=== PATIENT | female | born 1950 | race Caucasian/White ===

== ENCOUNTER → 2016-07-24 | Day surgery (SDC) | payer OTHER ==
[~2016-07-24] VITALS: Ht 157.5 cm; Wt 98.0 kg
[~2016-07-24] MED LIST: ASPI325T45 PO; ATROPINE SULFATE 0.1 MG/ML 5ML SYR IV PRN; B-CO1CAP5 PO; COEN1CAP7 PO; DRON400T PO; ESCI10TA17 PO; EpHEDrine SULFATE INJ 50 MG/ML AMP IV PRN; MAGN400T6 PO; METO50TA16 PO; MULTTAB58 PO; OMEG1CAP84 PO; PROPOFOL IV EMULSION 10 MG/ML 20 ML VIAL IV ONE; RIVA1TAB4 PO; SIMV40TA2 PO; VITAMIN C PO; VITAMIN D PO
[2016-07-24 07:02] VITALS: BP 148/84; PULSE 88; TEMP 36.5; O2SAT 97; Ht 157.5 cm; Wt 98.0 kg
[2016-07-24 08:02] VITALS: BP 141/94; PULSE 83; O2SAT 99
[2016-07-24 08:05] VITALS: BP 141/96; PULSE 83; O2SAT 99
[2016-07-24 08:06] VITALS: BP 94/63; PULSE 83; O2SAT 99
--- NOTE | 2016-07-24 08:24 | Cardiology Procedure Brief Nt ---
Preliminary Cardiology Note Procedure Date Jul 24, 2016. 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
--- NOTE | 2016-07-24 08:39 | Anesthesiology Progress Note ---
Anesthesia Post Op Note Date & Time Jul 24, 2016 at 08:38 Vital Signs Pain Intensity: 0 Vital Signs Past 12 Hours Date Time Temp Pulse Resp B/P Pulse Ox O2 Delivery O2 Flow Rate FiO2 07/24/16 08:10 49 16 90/56 96 Room Air 07/24/16 08:06 83 16 94/63 99 Room Air 07/24/16 08:05 83 16 141/96 99 Room Air 07/24/16 08:02 83 16 141/94 99 Room Air 07/24/16 07:02 36.5 88 20 148/84 97 Room Air Notes Mental Status: alert / awake / arousable, participated in evaluation Pt Amnestic to Procedure: Yes Nausea / Vomiting: adequately controlled Pain: adequately controlled Airway Patency, RR, SpO2: stable & adequate BP & HR: stable & adequate Hydration State: stable & adequate Anesthetic Complications: no major complications apparent
--- NOTE | 2016-07-24 09:11 | Discharge Instructions ---
Discharge Instructions Admission Reason for Admission: Atrial fibrillation Discharge Discharge Diagnosis / Problem: atrial fibrillation with cardioversion Discharge Goals Goal(s): Improve disease control Activity Recommendations Activity Limitations: resume your previous activity . Instructions / Follow-Up Instructions / Follow-Up ACTIVITY RECOMMENDATIONS: * May resume driving tomorrow. SPECIAL CARE: * May apply burn ointment for skin irritation. * Please contact physician for any lightheadedness, dizziness or palpitations. We will arrange follow-up for one month Current Hospital Diet Patient's current hospital diet: AHA Diet (Heart Healthy) Discharge Diet Recommended Diet: AHA Diet (Heart Healthy) Procedures Procedures Performed: Electrical cardioversion Pending Studies Studies pending at discharge: no Medical Emergencies . Who to Call and When: Medical Emergencies: If at any time you feel your situation is an emergency, please call 911 immediately. . Non-Emergent Contact Non-Emergency issues call your: Primary Care Provider . . "Provider Documentation" section prepared by Hero Wynn. VTE Core Measure Inpt VTE Proph given/why not?: Other Anticoagulation
[2016-07-24 10:00] VITALS: BP 108/64; PULSE 52; O2SAT 96
--- NOTE | 2016-08-22 01:01 | OPERATIVE REPORT ---
DATE OF OPERATION: 07/24/2016 INDICATIONS FOR CARDIOVERSION: Atrial fibrillation. HISTORY: This is a 66-year-old woman, who has a history of atrial fibrillation, for which she is quite symptomatic. She was anticoagulated properly and remains in atrial fibrillation. She is on Multaq and Xarelto. She is, therefore, brought to the laboratory for cardioversion. After obtaining informed consent for the procedure, she was connected to the recording apparatus and anteroposterior patch electrodes were placed. She was anesthetized by the anesthesia department and once adequate anesthesia was obtained, she was converted with a single 200-joule shock to sinus rhythm. She tolerated the procedure well, awoke without sequelae and will be observed briefly and discharged. JONATHAN
== END | disposition home or self-care (01) ==
LOC: C.CATH 06:34
PROVIDERS: ATTEND Internal Medicine Cardiovascular Disease
DX: I48.0 Paroxysmal atrial fibrillation (principal); R00.2 Palpitations; F41.8 Other specified anxiety disorders; E78.00 Pure hypercholesterolemia, unspecified

== ENCOUNTER → 2016-12-20 | Outpatient (CLI) | payer OTHER ==
[~2016-12-20] MED LIST changes: -ASPI325T45 PO; -ATROPINE SULFATE 0.1 MG/ML 5ML SYR IV PRN; -EpHEDrine SULFATE INJ 50 MG/ML AMP IV PRN; -METO50TA16 PO; -PROPOFOL IV EMULSION 10 MG/ML 20 ML VIAL IV ONE
== END | disposition home or self-care (01) ==
LOC: C.PATHSPEC 17:35
PROVIDERS: ATTEND Obstetrics & Gynecology
DX: N84.1 Polyp of cervix uteri (principal); N90.89 Other specified noninflammatory disorders of vulva and perineum

== ENCOUNTER → 2017-02-07 | Outpatient (CLI) | payer OTHER ==
--- NOTE | 2017-02-07 14:07 | DIAGNOSTIC IMAGING REPORT ---
RIGHT HIP 2 VIEWS HISTORY: Right hip pain. COMPARISON: None. FINDINGS: No fracture or dislocation of the right hip. The visualized pelvic bones are intact. Soft tissues are unremarkable. Soft tissues are unremarkable. No radiopaque foreign bodies. IMPRESSION: No fracture or dislocation within the right hip. Electronically signed by: John Conway M.D. 02/07/2017 2:06 PM Dictated Date/Time: 02/07/2017 2:05 PM
--- NOTE | 2017-02-07 14:10 | DIAGNOSTIC IMAGING REPORT ---
L-SPINE MIN 4 VIEWS ROUTINE HISTORY: 66 years-old Female M54.31 Sciatica of right side without back [id number] COMPARISON: Right hip radiographs of same day TECHNIQUE: 5 views of the lumbar spine FINDINGS: 5 nonrib-bearing lumbar type vertebral segments are present. The bones are mildly demineralized. There is mild convex left curvature of the lumbar spine. 11 mm anterolisthesis of L4 on L5 is present likely secondary to underlying severe facet arthrosis. Intervertebral disc space narrowing is seen most prominently at the L4-L5 and L5-S1 levels. Severe facet arthropathy also noted at L5-S1. No acute compression deformity is identified involving the lumbar spine. Moderate degenerative changes about the bilateral hips. There is atherosclerosis of the aorta. IMPRESSION: 1. No acute fracture of the lumbar spine identified. 2. 11 mm anterolisthesis L4 on L5 is likely on a degenerative basis as there is severe facet arthrosis at this interspace. Intervertebral disc space narrowing seen most prominently at L4-L5. 3. Mild levoscoliosis. The above report was generated using voice recognition software. It may contain grammatical, syntax or spelling errors. Electronically signed by: Young Nunn M.D. 02/07/2017 2:08 PM Dictated Date/Time: 02/07/2017 2:05 PM
== END | disposition home or self-care (01) ==
LOC: C.RAD1850 13:41
PROVIDERS: ATTEND Internal Medicine
DX: M54.31 Sciatica, right side (principal); M25.551 Pain in right hip

== ENCOUNTER 2021-05-20 21:14 | Inpatient (IN) ==
[2021-05-20] MEDS ORDERED: MoRPHine SULFATE 2 MG/ML CARP IV STA (22:12)
[2021-05-20] MEDS ORDERED: SODIUM CHLORIDE 0.9% 500 ML IV STA (22:12)
[2021-05-20] MEDS ORDERED: dexAMETHasone**PF** 10 MG/ML VIAL IV ONE (22:12)
--- NOTE | 2021-05-20 22:26 | Emergency Department Note ---
Impression & Plan Acute hypoxemic respiratory failure due to COVID-19, Pneumonia due to 2019 novel coronavirus, Leukopenia, Thrombocytopenia, Hypokalemia, Hypocalcemia ED Provider Note NAME: HOUSTON YUSUF AGE: 71 SEX: F : 1950 ARRIVES VIA: Walk-In INFORMANT: Patient, ED PROVIDER(S): Jonah Sanchez MD Chief Complaint: Shortness of breath HPI: Patient does present due to concern for shortness of breath and Covid diagnosis. The patient states that this is day 11. Patient states that her pulse ox was low today running anywhere from 85 to 90%. Patient does complain of some pain in the left chest which is over the rib. Patient denies any fevers or chills. The patient has had decreased p.o. intake with mild nausea but no vomiting. The patient denies any abdominal pain or lower extremity swelling. No prior history of DVT or PE. No recent surgeries or procedures. The patient states that the patient is unvaccinated. The patient does have a history of A. fib does follow with Dr. Bales and is on Eliquis. Patient states that the rest of her family also is unvaccinated and also is suffering from symptoms of Covid. Patient is a non-smoker. ROS: See HPI for pertinent positives and negatives. A total of 10 systems were reviewed and otherwise negative. Past medical history: See below Surgical history: See below Social history: See below Physical Exam: GENERAL: NAD, wearing a mask, non-toxic. EYE EXAM: Normal conjunctiva. PERRL, no anisocoria and EOM's grossly intact w/o pain. NECK: Supple, no nuchal rigidity, no adenopathy, non-tender. No signs of meningismus. Chest: Left-sided reproducible lower chest wall pain without overlying crepitus or flail chest. LUNGS: Bibasilar crackles noted.Normal chest wall mechanics. HEART: NSR, no MRG. ABDOMEN: Abdomen soft, non-tender, normo-active bowel sounds, no masses, no rebound or guarding. BACK: No CVA TTP. SKIN: No rashes and no bruising. UPPER EXTREMITIES: Upper extremities are grossly normal. LOWER EXTREMITIES: Grossly normal, no edema. Negative Homans' sign bilaterally. NEURO EXAM: A&O x3, cranial nerves II-XII grossly intact, normal speech, moves all 4 extremities on command w/o issue. Differential diagnoses: Reactive airway disease, pneumonia, pneumothorax, COPD, CHF, infections, cardiac ischemia, pulmonary embolism, musculoskeletal, gastrointestinal, as well as other pathologies. Course: Patient was seen and evaluated the bedside. Full history physical exam was performed. EKG interpreted by me Sinus bradycardia, rate of 52, normal HI and QRS, prolonged QT, normal axis, T wave version in lead III and aVF. T wave version in lead III appears to be old from comparison EKG 06/06/2018. Imaging Studies: See Below Cardiac monitoring: An order was placed for continuous cardiac monitoring. The monitor shows a rate of 65 with sinus rhythm. MDM: Patient did present due to concern for shortness of breath left-sided chest di scomfort and cough. The patient did test positive for Covid back on May 07. Patient was 89% for me after being in the low 90s in triage. The patient was placed on 2 L nasal cannula. Blood work was obtained along with EKG troponin chest x-ray dexamethasone IV fluids. Patient has mild leukopenia with a normal H&H and mild thrombocytopenia. Chest x-ray shows likely multifocal pneumonia. EKG without obvious arrhythmia. Patient did have mild hypokalemia and hypocalcemia which were ordered for replacement. Troponin is negative. Given the patient's hypoxemia and oxygen requirement I did speak the on-call hospitalist Dr. Rodriguez and the patient was admitted to the medicine service. Critical Care: I have personally spent 37 minutes of critical care time in direct management of this patient. This includes bedside care, interpretation of diagnostic studies, and testing, discussion with consultants, patient, and family members, and other require inpatient management activities. This 37 minutes is in excess of all separately billable procedures. Past Med/Surg History Medical History (Updated 05/20/21 @ 23:30 by Jonah Sanchez MD) Anxiety Depression Diverticulosis Exposure to strep throat Hiatal hernia History of cardioversion X 2 Hypercholesteremia Internal hemorrhoids retirement current use of anticoagulant Mitral valve prolapse Morbid obesity On anticoagulant therapy Palpitations Paroxysmal atrial fibrillation Paroxysmal atrial fibrillation Pulmonary hypertension Sciatica Sciatica of right side without back pain Solitary thyroid nodule Substernal thyroid goiter Tricuspid regurgitation Surgical History H/O arthroscopic knee surgery LEFT H/O dilation and curettage History of colonoscopy History of knee replacement BILAT. History of tonsillectomy and adenoidectomy History of tooth extraction Nausea and vomiting after administration of anesthetic agent Family History Brother Family history of diabetes mellitus Stroke Father Diabetes Hypertension Coronary heart disease Stroke Mother Hypertension Ovarian cancer Unknown Coronary heart disease Ovarian cancer Social History Smoking Status: Never smoker Second Hand Exposure: Yes; Hx Alcohol Use: No Hx Substance Use: No Preferred Language: Latvian Communication Ability: Effective Visual Impairment: Partially Limited Hearing Ability: Normal Motor Operator Required: No Beliefs That Will Affect Care: None marital status: / Current Living Situation: Family Current Living Situation Comment: lives with children current occupational status: employed 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 How many Children do You have: 3 How many Children do You have Comment: 2 girls 1 boy Feels Safe at Home: Yes Childhood Exposure to Second-Hand Smoke: Yes during the past year weight has: remained stable Dental Care, Regularly: Yes Physical Activity Frequency: Does not Exercise Seatbelt Use: always Sunscreen Use: Yes Assistive Devices: Glasses Allergies Allergies Allergy/AdvReac Type Severity Reaction Status Date / Time Penicillins Allergy Mild hives Verified 05/20/21 23:03 Sulfa (Sulfonamide Allergy Mild hives Verified 05/20/21 23:03 Antibiotics) Home Meds Home Medications Medication Instructions Recorded Confirmed coQ10 (ubiquinol) 200 mg capsule 200 mg PO DAILY 06/03/18 05/20/21 magnesium 250 mg tablet 250 mg PO DAILY 06/03/18 05/20/21 vitamin B complex 1 tab PO DAILY 06/03/18 05/20/21 Previous Rx's Medication Instructions Recorded escitalopram oxalate 20 mg tablet 20 mg PO DAILY #90 tab 07/04/20 (Lexapro) metoprolol tartrate 50 mg tablet 50 mg PO BID #180 tab 08/29/20 cholecalciferol (vitamin D3) 25 5,000 unit PO DAILY #30 cap 08/30/20 mcg (1,000 unit) capsule (Vitamin D3) apixaban 5 mg tablet (Eliquis) 5 mg PO BID #180 tab 09/19/20 atorvastatin 40 mg tablet 40 mg PO DAILY #90 tab 09/19/20 flecainide 150 mg tablet 150 mg PO Q12H #60 tab 03/27/21 Results & Data (ED) Vital Signs Vital Signs - 24 hr 05/20/21 21:17 Temperature 36.5 C Temperature Source Temporal Artery Scan Pulse Rate 61 Respiratory Rate 22 Blood Pressure 176/79 H Blood Pressure Mean 111 Pulse Oximetry 91 Oxygen Delivery Method Room Air Sepsis Recent Fever Within 48 Hours Yes Sepsis New/Unexplained Change in Mental Status N/A Sepsis Action Taken by Nursing No Action Required Home Medications Current Medication List: was personally reviewed by me Laboratory Data Attestation: I reviewed the patient's lab results. Result diagrams: 05/20/21 22:44 05/20/21 22:44 Lab Results 05/20/21 05/20/21 Range/Units 22:44 22:44 WBC 4.56 L (4.8-10.8) K/uL RBC 4.64 (4.2-5.4) M/uL Hgb 14.0 (12.0-16.0) g/dL Hct 40.0 (37-47) % MCV 86.2 (80-100) fL MCH 30.2 (25-34) pg MCHC 35.0 (32-36) g/dL RDW Std Deviation 41.4 (36.4-46.3) fL RDW Coeff of Rodriguez 13.0 (11.5-14.5) % Plt Count 119 L (130-400) K/uL MPV 11.4 H (7.4-10.4) fL Immature Gran % (Auto) 0.2 % Neut % (Auto) 74.6 % Lymph % (Auto) 16.0 % [place] % (Auto) 8.8 % Eos % (Auto) 0.2 % Baso % (Auto) 0.2 % Neut # (Auto) 3.40 (1.4-6.5) K/uL Lymph # (Auto) 0.73 L (1.2-3.4) K/uL [place] # (Auto) 0.40 (0.11-0.59) K/uL Eos # (Auto) 0.01 (0-0.5) K/uL Baso # (Auto) 0.01 (0-0.2) K/uL Immature Gran # (Auto) 0.01 (0.00-0.02) K/uL Sodium 136 (136-145) mmol/L Potassium 3.1 L (3.5-5.1) mmol/L Chloride 97 L (98-107) mmol/L Carbon Dioxide 29 (21-32) mmol/L Anion Gap 9.0 (3-11) BUN 10 (7-18) mg/dl Creatinine 0.65 (0.6-1.2) mg/dl Est Cr Clr Drug Dosing Not Reportable Est GFR ( Amer) 102.8 ml/min Est GFR (Non-Af Amer) 88.7 ml/min BUN/Creatinine Ratio 14.5 (10-20) Glucose 106 H (70-99) mg/dl Calcium 8.3 L (8.5-10.1) mg/dl Total Bilirubin 1.2 H (0.2-1) mg/dl AST 52 H (15-37) U/L ALT 23 (12-78) U/L Alkaline Phosphatase 63 (45-117) U/L Troponin I < 0.015 (0-0.045) ng/ml Total Protein 7.1 (6.4-8.2) gm/dl Albumin 2.6 L (3.4-5.0) gm/dl Globulin 4.5 H (2.5-4.0) gm/dl Albumin/Globulin Ratio 0.6 L (0.9-2) Specimen Hemolysis Administered Medications Discontinued Medications Dexamethasone Sodium Phosphate (DexamethasonePf 10 Mg/Ml Vial) 6 mg IV NOW ONE Stop: 05/20/21 22:13 Last Admin: 05/20/21 22:53 Dose: 6 mg Documented by: [id number] Sodium Chloride (Nss) 500 mls @ 999 mls/hr IV .Q31M STA Stop: 05/20/21 22:42 Last Admin: 05/20/21 22:53 Dose: 999 mls/hr Documented by: [id number] Morphine Sulfate (Morphine Sulfate 2 Mg/Ml Carp) 2 mg IV NOW STA Stop: 05/20/21 22:13 Last Admin: 05/20/21 23:21 Dose: Not Given Documented by: [id number] Imaging Data Radiologist's Impression: Chest X-Ray 05/20/21 22:12 XR chest 1V portable CLINICAL HISTORY: Dyspnea/covid/hypoxia TECHNIQUE: Single frontal radiograph of the chest was obtained. Comparison: None available at the time of this dictation. FINDINGS: No lines and tubes are seen. Cardiomegaly is noted. Multifocal airspace opacities are seen. No evidence of pleural effusion or pneumothorax. IMPRESSION: Multifocal airspace opacities compatible with history of viral pneumonia. ACT 112: Negative or not required by law. Electronically signed by: Omar Mata M.D. 05/20/2021 10:51 PM Discharge Plan Visit Data Chief Complaint: Shortness of Breath/Dyspnea Stated Complaint: DAY 11 OF COVID,BLOOD OX LOW,COUGH,PAIN IN BACK ED Provider: Jonah Sanchez Discharge Problem: Acute hypoxemic respiratory failure due to COVID-19, Pneumonia due to 2019 novel coronavirus, Leukopenia, Thrombocytopenia, Hypokalemia, Hypocalcemia Forms Stand Alone Forms: [facility] [place] [facility] Prescriptions Prescriptions: No Action cholecalciferol (vitamin D3) [Vitamin D3] 25 mcg (1,000 unit) capsule 5,000 unit PO DAILY Qty: 30 RF: 0 flecainide 150 mg tablet 150 mg PO Q12H Qty: 60 RF: 5 metoprolol tartrate 50 mg tablet 50 mg PO BID Qty: 180 RF: 3 Eliquis 5 mg tablet 5 mg PO BID Qty: 180 RF: 3 escitalopram oxalate [Lexapro] 20 mg tablet 20 mg PO DAILY Qty: 90 RF: 3 atorvastatin 40 mg tablet 40 mg PO DAILY Qty: 90 RF: 3 vitamin B complex Tablet 1 tab PO DAILY RF: 0 magnesium 250 mg Tablet 250 mg PO DAILY RF: 0 coQ10 (ubiquinol) 200 mg Capsule 200 mg PO DAILY RF: 0 Referrals Referrals: Austen Muñoz MD [Primary Care Provider] -
--- NOTE | 2021-05-20 22:53 | XRay Report ---
XR chest 1V portable CLINICAL HISTORY: Dyspnea/covid/hypoxia TECHNIQUE: Single frontal radiograph of the chest was obtained. Comparison: None available at the time of this dictation. FINDINGS: No lines and tubes are seen. Cardiomegaly is noted. Multifocal airspace opacities are seen. No eviden ce of pleural effusion or pneumothorax. IMPRESSION: Multifocal airspace opacities compatible with history of viral pneumonia. ACT 112: Negative or not required by law. Electronically signed by: Omar Mata M.D. 05/20/2021 10:51 PM
[2021-05-20 23:04] LABS: Basophils # (auto) 0.01 K/uL (0-0.2); Basophils % (auto) 0.2 %; Eosinophils # (auto) 0.01 K/uL (0-0.5); Eosinophils % (auto) 0.2 %; Immature Granulocytes # (auto) 0.01 K/uL (0.00-0.02); Immature Granulocytes % (auto) 0.2 %; Lymphocytes # (auto) 0.73 K/uL (1.2-3.4); Mean Corpuscular Hemoglobin 30.2 pg (25-34); Mean Corpuscular Volume 86.2 fL (80-100); Mean Platelet Volume 11.4 fL (7.4-10.4); Monocytes % (auto) 8.8 %; Neutrophils % (auto) 74.6 %; Platelet Count 119 K/uL (130-400); RDW Standard Deviation 41.4 fL (36.4-46.3); Red Blood Count 4.64 M/uL (4.2-5.4); White Blood Count 4.56 K/uL (4.8-10.8)
[2021-05-20 23:27] LABS: Alanine Aminotransferase 23 U/L (12-78); Albumin Globulin Ratio 0.6 (0.9-2); Albumin Level 2.6 gm/dl (3.4-5.0); Alkaline Phosphatase 63 U/L (45-117); Aspartate Aminotransferase 52 U/L (15-37); BUN Creatinine Ratio 14.5 (10-20); Bilirubin,Total 1.2 mg/dl (0.2-1); Blood Urea Nitrogen 10 mg/dl (7-18); Calcium 8.3 mg/dl (8.5-10.1); Carbon Dioxide 29 mmol/L (21-32); Chloride 97 mmol/L (98-107); Est GFR (African American) 102.8 ml/min; Est GFR (Non-African American) 88.7 ml/min; Globulin 4.5 gm/dl (2.5-4.0); Glucose 106 mg/dl (70-99); Potassium 3.1 mmol/L (3.5-5.1); Sodium 136 mmol/L (136-145); Total Protein 7.1 gm/dl (6.4-8.2); Troponin I < 0.015 ng/ml (0-0.045)
[2021-05-20] MEDS ORDERED: CALCIUM GLUCONATE 1,000 MG/60 ML BAG IV STA (23:29)
[2021-05-20] MEDS ORDERED: POTASSIUM CHLORIDE CRTAB 20 MEQ TABCR PO STA (23:29)
--- NOTE | 2021-05-20 23:43 | History & Physical Report ---
Date of Service May 20, 2021 Assessment & Plan (1) Acute hypoxemic respiratory failure due to COVID-19: Plan: COVID-19 pneumonia with hypoxia- Dexamethasone 6 mg IV every morning Azithromycin 500 mg IV daily Duonebs every 4 hours while awake and every 2 hours when necessary. Guaifenesin extended release 12 mg p.o. twice daily Vitamin D 1000 international units p.o. every morning Zinc sulfate turn 20 mg p.o. every morning Patient does not qualify for remdesivir on the basis of time from initial symptoms If not responding to the above therapy, will discuss with pulmonology the value of antibody therapy (2) Thrombocytopenia: Plan: Platelets 119 upon admission, with baseline 154 Consistent with COVID-19 infection Follow serially (3) Dyslipidemia: Plan: Continue atorvastatin (4) Paroxysmal atrial fibrillation: Plan: Paroxysmal atrial fibrillation/hypertension- Continue apixaban 5 mg p.o. twice daily, flecainide 150 mg p.o. every 12 hours, metoprolol tartrate 50 mg p.o. twice daily. (5) Hypertension: Plan: See above (6) Sinus bradycardia: Plan: Secondary to treatment for atrial fibrillation (7) Anxiety with depression: Plan: Continue Escitalopram History of Present Illness Chief Complaint: The patient presents to the emergency department at the insistence of her daughter, when found to have a pulse ox in the upper 80s at home, and persistent generalized weakness since her initial positive COVID-19 test on 05/10/2021 Primary Care Provider: Austen Muñoz MD The patient is a 71-year-old female with a past medical history including hyperlipidemia, sinus bradycardia, hypertension, paroxysmal atrial fibrillation, tricuspid regurgitation, solitary thyroid nodule, right sciatica, chronic anticoagulation, diverticulosis, and diffuse goiter. Patient has symptoms that began on May 07, and had a positive COVID-19test on May 10. She was advised to remain at home and in general live healthfully. During his interval, patient had persistent generalized fatigue, loss of taste and smell, and was noted today by her daughter to have a pulse ox at home in the upper 80s. Chest x-ray: Multifocal pneumonia Abnormal laboratories: Platelets 119, potassium 3.1, total bilirubin 1.2, AST 52, calcium 8.3, albumin 2.6 COVID-19 testing was positive on 05/10/2021 From the ED the patient received: Dexamethasone 6 mg IV, NSS 500 mL, morphine sulfate 2 mg IV, and calcium gluconate 1 g IV. Allergies Allergy/AdvReac Type Severity Reaction Status Date / Time Penicillins Allergy Mild hives Verified 05/20/21 23:03 Sulfa (Sulfonamide Allergy Mild hives Verified 05/20/21 23:03 Antibiotics) Home Medications Medication Instructions Recorded Confirmed Type coQ10 (ubiquinol) 200 mg capsule 200 mg PO DAILY 06/03/18 05/20/21 History magnesium 250 mg tablet 250 mg PO DAILY 06/03/18 05/20/21 History vitamin B complex 1 tab PO DAILY 06/03/18 05/20/21 History escitalopram oxalate 20 mg tablet 20 mg PO DAILY #90 tab 07/04/20 05/20/21 Rx (Lexapro) metoprolol tartrate 50 mg tablet 50 mg PO BID #180 tab 08/29/20 05/20/21 Rx cholecalciferol (vitamin D3) 25 5,000 unit PO DAILY #30 cap 08/30/20 05/20/21 Rx mcg (1,000 unit) capsule (Vitamin D3) apixaban 5 mg tablet (Eliquis) 5 mg PO BID #180 tab 09/19/20 05/20/21 Rx atorvastatin 40 mg tablet 40 mg PO DAILY #90 tab 09/19/20 05/20/21 Rx flecainide 150 mg tablet 150 mg PO Q12H #60 tab 03/27/21 05/20/21 Rx Past Med/Surg History Medical History (Updated 05/21/21 @ 02:03 by Modesto Harrell MD) Anxiety Anxiety with depression Depression Diverticulosis Exposure to strep throat Hiatal hernia History of cardioversion X 2 Hypercholesteremia Internal hemorrhoids FDC current use of anticoagulant Mitral valve prolapse Morbid obesity On anticoagulant therapy Palpitations Paroxysmal atrial fibrillation Paroxysmal atrial fibrillation Pulmonary hypertension Sciatica Sciatica of right side without back pain Solitary thyroid nodule Substernal thyroid goiter Tricuspid regurgitation Surgical History H/O arthroscopic knee surgery LEFT H/O dilation and curettage History of colonoscopy History of knee replacement BILAT. History of tonsillectomy and adenoidectomy History of tooth extraction Nausea and vomiting after administration of anesthetic agent Family History Brother Family history of diabetes mellitus Stroke Father Diabetes Hypertension Coronary heart disease Stroke Mother Hypertension Ovarian cancer Unknown Coronary heart disease Ovarian cancer Social History Smoking Status: Never smoker Second Hand Exposure: Yes; Hx Alcohol Use: No Hx Substance Use: No Preferred Language: Belgian Communication Ability: Effective Visual Impairment: Partially Limited Hearing Ability: Normal Barrel Raiser Required: No Beliefs That Will Affect Care: None marital status: / Current Living Situation: Family Current Living Situation Comment: lives with children current occupational status: employed 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 How many Children do You have: 3 How many Children do You have Comment: 2 girls 1 boy Feels Safe at Home: Yes Childhood Exposure to Second-Hand Smoke: Yes during the past year weight has: remained stable Dental Care, Regularly: Yes Physical Activity Frequency: Does not Exercise Seatbelt Use: always Sunscreen Use: Yes Assistive Devices: Glasses Review of Systems Review of Systems: The patient denies chest pain, palpitations, cough, lower extremity swelling, sore throat, fevers, chills, sweats, nausea, vomiting, diarrhea , constipation, abdominal pain, pelvic pain, blood in urine or stool, dysuria, urinary frequency or urgency, memory loss, loss of consciousness, rash, abnormal bruising or bleeding, imbalance, focal weakness, numbness or tingling in arms or legs, generalized arthralgias or myalgias, back or neck pain, or night sweats. The review of systems is otherwise negative other than for that already noted above, and at least 10 systems have been reviewed. Physical Exam Physical Exam: The patient is awake, alert and oriented 3, well developed and well nourished, normocephalic and atraumatic, lying in bed and in no acute distress. HEENT--PERRL, EOMI, mucous membranes and oropharynx normal. Neck--supple. No JVD. No bruits. Thyroid normal, trachea midline, no adenopathy. Heart--normal S1 and S2. No murmurs, rubs or gallops. Lungs--coarse breath sounds bilaterally. No respiratory distress, no accessory muscle use. Abdomen--normal bowel sounds and soft. Nontender. Nondistended morbidly obese Extremities--no cyanosis or clubbing. No edema. Dermatologic--normal skin turgor, normal color, no abnormal lymph nodes, no rash. Neurologic--cranial nerves II through XII grossly intact. Rheumatologic--normal range of motion. Psychiatric--normal affect. Results & Data Results & Data ([facility]) Vital Signs (Past 12 Hours) Vital Signs Temp Pulse Resp BP Pulse Ox 05/20/21 21:17 97.7 F 61 22 176/79 H 91 Laboratory Results Laboratory Results WBC 4.56 K/uL (4.8-10.8) L 05/20/21 22:44 RBC 4.64 M/uL (4.2-5.4) 05/20/21 22:44 Hgb 14.0 g/dL (12.0-16.0) 05/20/21 22:44 Hct 40.0 % (37-47) 05/20/21 22:44 MCV 86.2 fL (80-100) 05/20/21 22:44 MCH 30.2 pg (25-34) 05/20/21 22:44 MCHC 35.0 g/dL (32-36) 05/20/21 22:44 RDW Std Deviation 41.4 fL (36.4-46.3) 05/20/21 22:44 RDW Coeff of Rodriguez 13.0 % (11.5-14.5) 05/20/21 22:44 Plt Count 119 K/uL (130-400) L 05/20/21 22:44 MPV 11.4 fL (7.4-10.4) H 05/20/21 22:44 Immature Gran % (Auto) 0.2 % 05/20/21 22:44 Neut % (Auto) 74.6 % 05/20/21 22:44 Lymph % (Auto) 16.0 % 05/20/21 22:44 [place] % (Auto) 8.8 % 05/20/21 22:44 Eos % (Auto) 0.2 % 05/20/21 22:44 Baso % (Auto) 0.2 % 05/20/21 22:44 Neut # (Auto) 3.40 K/uL (1.4-6.5) 05/20/21 22:44 Lymph # (Auto) 0.73 K/uL (1.2-3.4) L 05/20/21 22:44 [place] # (Auto) 0.40 K/uL (0.11-0.59) 05/20/21 22:44 Eos # (Auto) 0.01 K/uL (0-0.5) 05/20/21 22:44 Baso # (Auto) 0.01 K/uL (0-0.2) 05/20/21 22:44 Immature Gran # (Auto) 0.01 K/uL (0.00-0.02) 05/20/21 22:44 Giant Platelets 1+ 05/20/21 22:44 Sodium 136 mmol/L (136-145) 05/20/21 22:44 Potassium 3.1 mmol/L (3.5-5.1) L 05/20/21 22:44 Chloride 97 mmol/L (98-107) L 05/20/21 22:44 Carbon Dioxide 29 mmol/L (21-32) 05/20/21 22:44 Anion Gap 9.0 (3-11) 05/20/21 22:44 BUN 10 mg/dl (7-18) 05/20/21 22:44 Creatinine 0.65 mg/dl (0.6-1.2) 05/20/21 22:44 Est Cr Clr Drug Dosing Not Reportable 05/20/21 22:44 Est GFR ( Amer) 102.8 ml/min 05/20/21 22:44 Est GFR (Non-Af Amer) 88.7 ml/min 05/20/21 22:44 BUN/Creatinine Ratio 14.5 (10-20) 05/20/21 22:44 Glucose 106 mg/dl (70-99) H 05/20/21 22:44 Calcium 8.3 mg/dl (8.5-10.1) L 05/20/21 22:44 Total Bilirubin 1.2 mg/dl (0.2-1) H 05/20/21 22:44 AST 52 U/L (15-37) H 05/20/21 22:44 ALT 23 U/L (12-78) 05/20/21 22:44 Alkaline Phosphatase 63 U/L (45-117) 05/20/21 22:44 Troponin I < 0.015 ng/ml (0-0.045) 05/20/21 22:44 Total Protein 7.1 gm/dl (6.4-8.2) 05/20/21 22:44 Albumin 2.6 gm/dl (3.4-5.0) L 05/20/21 22:44 Globulin 4.5 gm/dl (2.5-4.0) H 05/20/21 22:44 Albumin/Globulin Ratio 0.6 (0.9-2) L 05/20/21 22:44 Specimen Hemolysis 05/20/21 22:44 Impressions Chest X-Ray 05/20/21 22:12 XR chest 1V portable CLINICAL HISTORY: Dyspnea/covid/hypoxia TECHNIQUE: Single frontal radiograph of the chest was obtained. Comparison: None available at the time of this dictation. FINDINGS: No lines and tubes are seen. Cardiomegaly is noted. Multifocal airspace opacities are seen. No evidence of pleural effusion or pneumothorax. IMPRESSION: Multifocal airspace opacities compatible with history of viral pneumonia. ACT 112: Negative or not required by law. Electronically signed by: Omar Mata M.D. 05/20/2021 10:51 PM Code Status & VTE Plan Code Status Full code VTE Prophylaxis Plan VTE Prophylaxis will be ordered: Yes PG Care Time/CCT Total # of Minutes Spent Total Time Spent with Patient: Total time spent is greater than 50% in coordination of care (as documented) at patient's floor/unit and/or counseling patient: Coding Level of Care Code 28456 Initial Inpt Care Lvl 3 Diagnoses Acute hypoxemic respiratory failure due to COVID-19 U07.1; J96.01 Thrombocytopenia D69.6 Dyslipidemia E78.5 Hypertension I10 Hypertension type: essential hypertension Paroxysmal atrial fibrillation I48.0 Sinus bradycardia R00.1 Anxiety with depression F41.8 (1) Hypertension Hypertension type: essential hypertension Qualified Code(s): I10 - Essential (primary) hypertension
[2021-05-20 23:50] LABS: Giant Platelets 1+
[2021-05-21] MEDS ORDERED: ACETAMINOPHEN 325 MG TAB PO PRN (00:48)
[2021-05-21] MEDS ORDERED: ONDANSETRON INJ 2 MG/ML 2 ML VIAL IV PRN (00:48)
[2021-05-21] MEDS ORDERED: NSS + 20MEQ KCL 20 MEQ/1,000 ML BAG IV SCH (01:15)
[2021-05-21] MEDS ORDERED: hydrALAZINE HCL 20 MG/ML VIAL IV ONE (02:42)
[2021-05-21] MEDS: METOPROLOL TARTRATE 50 MG TAB PO SCH ×3 (02:54→20:42)
[2021-05-21] MEDS: APIXABAN 5 MG TABLET PO SCH ×3 (03:00→20:43)
[2021-05-21 03:46] LABS: Appearance Urine Cloudy (Clear); Bacteria Urine Automated Negative (Negative); Blood Urine Negative (Negative); Color Urine Dark Yellow; Epithelial Cell Urine Auto >30 /lpf (0-5); Glucose Urine UA Negative (Negative); Ketones Urine 2+ (Negative); Leukocyte Esterase Urine Trace (Negative); Nitrite Urine Negative (Negative); Protein Urine 2+ (Negative); Urobilinogen Urine Negative (Negative)
[2021-05-21 04:10] LABS: Bilirubin Urine 1+ (Negative)
[2021-05-21 04:27] LABS: Mucus Urine Present (None Prsent); RBC Urine Automated 0-4 /hpf (0-4)
[2021-05-21] MEDS ORDERED: AZITHROMYCIN 500 MG in DEXTROSE 5% 250 ML IV SCH (06:00)
[2021-05-21] MEDS: ALBUT/IPRATROP 3MG/0.5MG NEB 3 ML VIAL NEB SCH ×2 (07:25→11:57)
[2021-05-21 08:15] LABS: Albumin Level 2.3 gm/dl (3.4-5.0); BUN Creatinine Ratio 16.7 (10-20); Calcium 8.1 mg/dl (8.5-10.1); Creatinine Clr Calc Pharmacy 114.3 ml/min; Est GFR (African American) 111.3 ml/min; Est GFR (Non-African American) 96.1 ml/min; Magnesium 2.1 mg/dl (1.8-2.4); Potassium 3.5 mmol/L (3.5-5.1)
[2021-05-21 08:18] LABS: Albumin Globulin Ratio 0.6 (0.9-2); Bilirubin,Total 1.1 mg/dl (0.2-1); Total Protein 6.3 gm/dl (6.4-8.2)
[2021-05-21] MEDS ORDERED: POTASSIUM CHLORIDE CRTAB 20 MEQ TABCR PO STA (08:18)
[2021-05-21] MEDS: dexAMETHasone 6 MG in SYRINGE 0 ML IV SCH (08:53)
[2021-05-21] MEDS: ATORVASTATIN 40 MG TAB PO SCH (08:53)
[2021-05-21] MEDS: ZINC SULFATE 220 MG CAPSULE PO SCH (08:54)
[2021-05-21] MEDS: CHOLECALCIFEROL 1,000 UNITS 25 MCG TAB PO SCH (08:54)
[2021-05-21] MEDS: FLECAINIDE ACETATE 100 MG TABLET PO SCH ×2 (08:54→20:41)
[2021-05-21] MEDS: guaiFENesin 600 MG TABCR PO SCH ×2 (08:54→20:42)
[2021-05-21] MEDS: MAGNESIUM OXIDE 400 MG TAB PO SCH (08:55)
[2021-05-21] MEDS: VITAMIN B COMPLEX TAB PO SCH (08:55)
[2021-05-21] MEDS ORDERED: NON-FORMULARY MEDICATION (Coq10 (Ubiquinol) 200 mg Capsule) PO SCH (09:00)
[2021-05-21] MEDS ORDERED: METOPROLOL TARTRATE 50 MG TAB PO SCH (09:00)
--- NOTE | 2021-05-21 10:35 | Electrocardiogram Report ---
Test Reason : Blood Pressure : / mmHG Vent. Rate : 052 BPM Atrial Rate : 052 BPM P-R Int : 156 ms QRS Dur : 104 ms QT Int : 528 ms P-R-T Axes : 062 003 012 degrees QTc Int : 491 ms Poor data quality, interpretation may be adversely affected Sinus bradycardia Otherwise normal ECG When compared with ECG of 06-JUN-2018 07:39, Premature atrial complexes are no longer Present Confirmed by Hero Wynn ([id number]) on 05/21/2021 10:34:43 AM Referred By: REFERRED SELF Confirmed By:Hero Wynn
[2021-05-21] MEDS ORDERED: ALBUT/IPRATROP 3MG/0.5MG NEB 3 ML VIAL NEB PRN (12:57)
--- NOTE | 2021-05-21 16:18 | Hospitalist Progress Note ---
Date of Service May 21, 2021 Assessment & Plan (1) Acute hypoxemic respiratory failure due to COVID-19: Plan: COVID-19 pneumonia with hypoxia-she for started having symptoms on 05/07 and tested positive on 05/10 She is not vaccinated Now requiring 5 L nasal cannula Continue dexamethasone 6 mg IV every morning Discontinue azithromycin as this may be causing her diarrhea Check procalcitonin in the morning, can start an alternative antibiotic if elevated Continue Duonebs every 4 hours while awake and every 2 hours when necessary. Continue guaifenesin extended release 12 mg p.o. twice daily Continue Vitamin D 1000 international units p.o. every morning and-zinc sulfate 20 mg p.o. every morning Patient does not qualify for remdesivir on the basis of time from initial symptoms -Add incentive spirometer and flutter valve (2) Diarrhea: Plan: 13 episodes of loose stool on 05/21-could be from Covid, but may be from azithromycin C. difficile negative Start Imodium as needed Hold azithromycin Continue IV fluids with LR x1 more liter-already received 2 L prior to this (3) Nausea & vomiting: Plan: Secondary to COVID-19 Zofran as needed (4) Oral candidiasis: Plan: Start nystatin swish and swallow x14-day course-last day of treatment will be 06/04 (5) Thrombocytopenia: Plan: Platelets 119 upon admission, with baseline 154 Consistent with COVID-19 infection Follow serially (6) Paroxysmal atrial fibrillation: Plan: Paroxysmal atrial fibrillation-remains in sinus rhythm here Continue apixaban 5 mg p.o. twice daily, flecainide 150 mg p.o. every 12 hours, metoprolol tartrate 50 mg p.o. twice daily. Continue telemetry monitoring (7) Hypertension: Plan: Blood pressure is elevated likely secondary to corticosteroids Continue home metoprolol If continues to remain elevated, may need to give as needed hydralazine or p.o. amlodipine (8) Anxiety with depression: Plan: Holding escitalopram until QT improves (9) Dyslipidemia: Plan: Continue atorvastatin (10) Hypokalemia: Plan: Replaced overnight but still remains low at 3.5 Give 40 mEq p.o. potassium and 10 mEq IV as she threw up prior to the rest of her potassium today Follow BMP and magnesium in the morning (11) Prolonged QT interval: Plan: Prolonged at 509 on EKG this morning Discontinue azithromycin Okay to restart Lexapro for tomorrow if QT improved Follow ECG in the morning Replace electrolytes Plan: DVT prophylaxis apixaban Disposition-continued stay on telemetry Admission and Anticipated Discharge Date Admission Date: May 20, 2021 Subjective Patient has had at least 13 loose bowel movements today. She reports this is the first day she has had diarrhea in the 2 weeks she has had Covid symptoms. No blood in the stool. She also had some nausea and one small episode of emesis today. She denies chest pains or shortness of breath. She is on 5 L nasal cannula when I saw her. Telemetry with normal sinus rhythm, PACs, rates in the 50s to 70s Review of Systems Review of Systems: All systems reviewed & are unremarkable except as noted in HPI & below Having pain in her gums and mouth Physical Exam Constitutional: WD/WN, vitals as above Eyes: + anicteric sclerae ENMT: Gums, tongue, and buccal mucosa with significant erythema, some edema of the gums, and copious white exudate consistent with oral candidiasis Neck: trachea midline, no thyromegaly Respiratory: normal respiratory effort Auscultation: + diminished lung sounds (Throughout); no wheezes Cardiovascular: RRR, no murmur, no edema Chest (Breasts): Chest: normal inspection of chest Gastrointestinal (Abdomen): normal bowel sounds, soft, nontender, no hepatosplenomegaly Musculoskeletal: Extremities: extremities normal to inspection; no cyanosis and no clubbing Skin: no rashes, warm and dry Neurologic: moves all extremities and awake; no focal motor deficits Psychiatric: A+Ox3, euthymic affect Lymphatic: no lymphedema Results & Data Results & Data ([facility]) Vital Signs (Past 12 Hours) Vital Signs Temp Pulse Pulse Resp BP Pulse Ox 05/21/21 15:42 37.1 C 63 18 145/82 H 94 05/21/21 15:26 64 05/21/21 11:26 36.8 C 55 L 18 132/71 95 05/21/21 07:58 36.8 C 58 L 18 153/75 H 93 05/21/21 07:45 58 L 05/21/21 05:27 71 Laboratory Results 05/20/21 22:44 05/21/21 07:05 PG Care Time/CCT Total # of Minutes Spent Total Time Spent with Patient: Total time spent is greater than 50% in coordination of care (as documented) at patient's floor/unit and/or counseling patient: Coding Level of Care Code 70476 Subseq Hosp Care Lvl 3 Diagnoses Acute hypoxemic respiratory failure due to COVID-19 U07.1; J96.01 Thrombocytopenia D69.6 Dyslipidemia E78.5 Paroxysmal atrial fibrillation I48.0 Hypertension I10 Hypertension type: essential hypertension Anxiety with depression F41.8 Diarrhea R19.7 Nausea & vomiting R11.2 Oral candidiasis B37.0 Hypokalemia E87.6 Prolonged QT interval R94.31 (1) Hypertension Hypertension type: essential hypertension Qualified Code(s): I10 - Essential (primary) hypertension
[2021-05-21] MEDS ORDERED: POTASSIUM CHLORIDE / WTR 10 MEQ/100 ML PLCT IV ONE (16:19)
[2021-05-21] MEDS ORDERED: LOPERAMIDE HCL 2 MG CAP PO PRN (16:20)
[2021-05-21] MEDS ORDERED: LOPERAMIDE HCL 2 MG CAP PO STA (16:20)
[2021-05-21] MEDS ORDERED: LACTATED RINGER'S 1,000 ML IV SCH (16:30)
[2021-05-21] MEDS: NYSTATIN SUSP 500,000 U/5 ML UDC PO SCH ×2 (18:27→20:44)
[2021-05-22 07:43] LABS: Basophils # (auto) 0.02 K/uL (0-0.2); Basophils % (auto) 0.3 %; Hematocrit (blood only) 35.6 % (37-47); Immature Granulocytes # (auto) 0.01 K/uL (0.00-0.02); Immature Granulocytes % (auto) 0.2 %; Lymphocytes # (auto) 0.82 K/uL (1.2-3.4); Lymphocytes % (auto) 12.9 %; Mean Corpuscular Hemoglobin 29.6 pg (25-34); Mean Corpuscular Hgb Conc 33.7 g/dL (32-36); Mean Corpuscular Volume 87.7 fL (80-100); Mean Platelet Volume 11.5 fL (7.4-10.4); Monocytes # (auto) 0.76 K/uL (0.11-0.59); Neutrophils # (auto) 4.73 K/uL (1.4-6.5); Neutrophils % (auto) 74.6 %; Platelet Count 156 K/uL (130-400); RDW Coefficient of Variation 13.3 % (11.5-14.5); RDW Standard Deviation 43.2 fL (36.4-46.3); Red Blood Count 4.06 M/uL (4.2-5.4); White Blood Count 6.34 K/uL (4.8-10.8)
[2021-05-22 08:11] LABS: Albumin Level 2.3 gm/dl (3.4-5.0); BUN Creatinine Ratio 16.9 (10-20); C Reactive Protein 5.96 mg/dl (0-0.29); Calcium 7.9 mg/dl (8.5-10.1); Creatinine Clr Calc Pharmacy 104.4 ml/min; Est GFR (Non-African American) 93.2 ml/min; Magnesium 2.3 mg/dl (1.8-2.4); Potassium 3.7 mmol/L (3.5-5.1)
[2021-05-22 08:13] LABS: Albumin Globulin Ratio 0.6 (0.9-2); Globulin 3.9 gm/dl (2.5-4.0); Total Protein 6.2 gm/dl (6.4-8.2)
[2021-05-22] MEDS: ZINC SULFATE 220 MG CAPSULE PO SCH (08:27)
[2021-05-22] MEDS: VITAMIN B COMPLEX TAB PO SCH (08:27)
[2021-05-22] MEDS: guaiFENesin 600 MG TABCR PO SCH ×2 (08:27→21:03)
[2021-05-22] MEDS: CHOLECALCIFEROL 1,000 UNITS 25 MCG TAB PO SCH (08:27)
[2021-05-22] MEDS: FLECAINIDE ACETATE 100 MG TABLET PO SCH ×2 (08:28→21:01)
[2021-05-22] MEDS: NYSTATIN SUSP 500,000 U/5 ML UDC PO SCH ×4 (08:28→21:03)
[2021-05-22] MEDS: MAGNESIUM OXIDE 400 MG TAB PO SCH (08:28)
[2021-05-22] MEDS: METOPROLOL TARTRATE 50 MG TAB PO SCH ×2 (08:28→21:02)
[2021-05-22] MEDS: dexAMETHasone 6 MG in SYRINGE 0 ML IV SCH (08:28)
[2021-05-22] MEDS: ATORVASTATIN 40 MG TAB PO SCH (08:28)
[2021-05-22] MEDS: APIXABAN 5 MG TABLET PO SCH ×2 (08:28→21:03)
[2021-05-22] MEDS ORDERED: ESCITALOPRAM OXALATE 20 MG TAB PO SCH (09:00)
--- NOTE | 2021-05-22 09:14 | Hospitalist Progress Note ---
Date of Service May 22, 2021 Assessment & Plan (1) Acute hypoxemic respiratory failure due to COVID-19: Plan: COVID-19 pneumonia with hypoxia-she for started having symptoms on 05/07 and tested positive on 05/10 She is not vaccinated was up to 5L, now down to 2.5L with saturations around 90%, feeling better subjectively Continue dexamethasone 6 mg IV every morning, 10 day course, change to PO on discharge Continue Duonebs PRN, no wheezing today Continue guaifenesin extended release 12 mg p.o. twice daily Continue Vitamin D 1000 international units p.o. every morning and-zinc sulfate 20 mg p.o. every morning Patient does not qualify for remdesivir on the basis of time from initial symptoms -Add incentive spirometer and flutter valve she is compliant laying on her side try to wean down to room air and will then try to discharge to home (2) Diarrhea: Plan: 13 episodes of loose stool on 05/21- most likely from azithromycin which was stopped, no further diarrhea today C. difficile negative Start Imodium as needed no further IV fluids as diarrhea stopped and she is eating/drinking sufficiently (3) Nausea & vomiting: Plan: Secondary to COVID-19 Zofran as needed (4) Oral candidiasis: Plan: Start nystatin swish and swallow x14-day course-last day of treatment will be 06/04 (5) Thrombocytopenia: Plan: Platelets 119 upon admission, with baseline 154 Consistent with COVID-19 infection counts up to 156k today (6) Paroxysmal atrial fibrillation: Plan: Paroxysmal atrial fibrillation-remains in sinus rhythm here Continue apixaban 5 mg p.o. twice daily, flecainide 150 mg p.o. every 12 hours, metoprolol tartrate 50 mg p.o. twice daily. Continue telemetry monitoring (7) Hypertension: Plan: Blood pressure is elevated likely secondary to corticosteroids Continue home metoprolol (8) Anxiety with depression: Plan: resume Lexapro (9) Dyslipidemia: Plan: Continue atorvastatin (10) Hypokalemia: Plan: K is 3.7 today repeat tomorrow (11) Prolonged QT interval: Plan: Prolonged at 509 on EKG on 05/21 Discontinue azithromycin Okay to restart Lexapro Plan: DVT prophylaxis apixaban Disposition-continued stay on telemetry Admission and Anticipated Discharge Date Admission Date: May 20, 2021 Subjective patient is feeling better, her diarrhea is stopped "Thank God" she is down to 2.5L from 4L, saturations in high 80s to 90% has a dry cough, no sputum, no fever/chills she can lay on her side most of the time she asked if she was going to get worse, told her it was a good sign that she was going down on oxygen requirement she is around day 13 of illness, if she was going to get severe it likely would have happened by now encouraged her to focus on what she can control, eating and drinking well Review of Systems Review of Systems: All systems reviewed & are unremarkable except as noted in Subjective Constitutional: no fever and no chills Respiratory: + cough, + dyspnea and + dyspnea on exertion; no sputum production Physical Exam Physical Exam: General: well developed, well nourished, slightly obese, no acute distress, comfortable Neck: supple, trachea midline, normal thyroid Lungs: clear to auscultation bilaterally, slightly tachypneic, no accessory muscle use, no distress Heart: regular S1 and S2, no murmur, peripheral pulses normal, capillary refill normal, no edema Abdomen: soft, NT, ND, + BS, no hepatomegaly, normal to percussion Extremities: normal in appearance, no cyanosis, no petechiae, strength is 5/5 bilaterally Neuro: awake, cooperative, moves all extremities, no focal motor deficits, CN II-XII intact, sensation in extremities intact, normal speech Skin: warm, dry, no rash, normal turgor Psych: Awake, alert oriented x 3, euthymic affect Results & Data Results & Data ([facility]) Vital Signs (Past 12 Hours) Vital Signs Temp Pulse Pulse Resp BP Pulse Ox 05/22/21 07:29 37.2 C 58 L 18 151/77 H 90 05/22/21 03:20 37.1 C 61 16 152/68 H 93 05/22/21 01:44 58 L 05/21/21 23:40 37.2 C 58 L 16 164/80 H 85 L 05/21/21 22:10 180/68 H 05/21/21 21:53 62 191/103 H Laboratory Results Laboratory Results - last 24 hr 05/21/21 05/22/21 05/22/21 12:55 07:15 07:15 WBC 6.34 RBC 4.06 L Hgb 12.0 Hct 35.6 L MCV 87.7 MCH 29.6 MCHC 33.7 RDW Std Deviation 43.2 RDW Coeff of Rodriguez 13.3 Plt Count 156 MPV 11.5 H Immature Gran % (Auto) 0.2 Neut % (Auto) 74.6 Lymph % (Auto) 12.9 Loving % (Auto) 12.0 Eos % (Auto) 0.0 Baso % (Auto) 0.3 Neut # (Auto) 4.73 Lymph # (Auto) 0.82 L Loving # (Auto) 0.76 H Eos # (Auto) 0.00 Baso # (Auto) 0.02 Immature Gran # (Auto) 0.01 Sodium 141 Potassium 3.7 Chloride 107 Carbon Dioxide 27 Anion Gap 7.0 BUN 10 Creatinine 0.56 L Est Cr Clr Drug Dosing 104.4 Est GFR ( Amer) 108.0 Est GFR (Non-Af Amer) 93.2 BUN/Creatinine Ratio 16.9 Glucose 97 Calcium 7.9 L Magnesium 2.3 Total Bilirubin 1.0 AST 40 H ALT 20 Alkaline Phosphatase 52 C-Reactive Protein 5.96 H Total Protein 6.2 L Albumin 2.3 L Globulin 3.9 Albumin/Globulin Ratio 0.6 L Procalcitonin Stl C. diff Tox B Gene Negative Cdiff Gene 05/22/21 07:15 WBC RBC Hgb Hct MCV MCH MCHC RDW Std Deviation RDW Coeff of Rodriguez Plt Count MPV Immature Gran % (Auto) Neut % (Auto) Lymph % (Auto) Loving % (Auto) Eos % (Auto) Baso % (Auto) Neut # (Auto) Lymph # (Auto) Loving # (Auto) Eos # (Auto) Baso # (Auto) Immature Gran # (Auto) Sodium Potassium Chloride Carbon Dioxide Anion Gap BUN Creatinine Est Cr Clr Drug Dosing Est GFR ( Amer) Est GFR (Non-Af Amer) BUN/Creatinine Ratio Glucose Calcium Magnesium Total Bilirubin AST ALT Alkaline Phosphatase C-Reactive Protein Total Protein Albumin Globulin Albumin/Globulin Ratio Procalcitonin < 0.05 Stl C. diff Tox B Gene Medications Administered Current Inpatient Medications Acetaminophen (Acetaminophen 325 Mg Tab) 650 mg PO Q4H PRN PRN Reason: Pain or Fever Stop: 06/20/21 00:47 Last Admin: 05/21/21 03:00 Dose: 650 mg Documented by: Albuterol (Albut/Ipratrop 3mg/0.5mg Neb 3 Ml Vial) 3 ml NEB QIDR PRN PRN Reason: Wheezing Stop: 06/20/21 06:59 Apixaban (Apixaban 5 Mg Tablet) 5 mg PO BID GEN Stop: 06/20/21 00:47 Last Admin: 05/22/21 08:28 Dose: 5 mg Documented by: Atorvastatin Calcium (Atorvastatin 40 Mg Tab) 40 mg PO DAILY GEN Stop: 06/20/21 08:59 Last Admin: 05/22/21 08:28 Dose: 40 mg Documented by: Flecainide Acetate (Flecainide Acetate 100 Mg Tablet) 150 mg PO Q12H GEN Stop: 06/20/21 08:59 Last Admin: 05/22/21 08:28 Dose: 150 mg Documented by: Guaifenesin (Guaifenesin 600 Mg Tabcr) 1,200 mg PO Q12 GEN Stop: 06/20/21 08:59 Last Admin: 05/22/21 08:27 Dose: 1,200 mg Documented by: Dexamethasone 6 mg/ Syringe 1.5 mls @ 1 mls/min IV Q24H GEN Stop: 06/20/21 08:59 Last Admin: 05/22/21 08:28 Dose: 1 mls/min Documented by: Loperamide HCl (Loperamide Hcl 2 Mg Cap) 2 mg PO Q4 PRN PRN Reason: diarrhea Stop: 06/20/21 16:19 Last Admin: 05/21/21 20:43 Dose: 2 mg Documented by: Magnesium Oxide (Magnesium Oxide 400 Mg Tab) 400 mg PO DAILY GEN Stop: 06/20/21 08:59 Last Admin: 05/22/21 08:28 Dose: 400 mg Documented by: Metoprolol Tartrate (Metoprolol Tartrate 50 Mg Tab) 50 mg PO BID GEN Stop: 06/20/21 02:39 Last Admin: 05/22/21 08:28 Dose: 50 mg Documented by: Nystatin (Nystatin Susp 500,000 U/5 Ml Udc) 5 ml PO QID GEN Stop: 05/31/21 16:59 Last Admin: 05/22/21 08:28 Dose: 5 ml Documented by: Ondansetron HCl (Ondansetron Inj 2 Mg/Ml 2 Ml Vial) 4 mg IV Q6H PRN PRN Reason: Nausea Stop: 06/20/21 00:47 Last Admin: 05/21/21 12:36 Dose: 4 mg Documented by: Vitamin B Complex (Vitamin B Complex Tab) 1 tab PO DAILY GEN Stop: 06/20/21 08:59 Last Admin: 05/22/21 08:27 Dose: 1 tab Documented by: Vitamin D (Cholecalciferol 1,000 Units 25 Mcg Tab) 5,000 units PO DAILY GEN Stop: 06/20/21 08:59 Last Admin: 05/22/21 08:27 Dose: 5,000 units Documented by: Zinc Sulfate (Zinc Sulfate 220 Mg Capsule) 220 mg PO QAM GEN Stop: 06/20/21 08:59 Last Admin: 05/22/21 08:27 Dose: 220 mg Documented by: PG Care Time/CCT Total # of Minutes Spent Total Time Spent with Patient: Total time spent is greater than 50% in coordination of care (as documented) at patient's floor/unit and/or counseling patient: Coding Level of Care Code 26861 Subseq Hosp Care Lvl 3 Diagnoses Acute hypoxemic respiratory failure due to COVID-19 U07.1; J96.01 Diarrhea R19.7 Nausea & vomiting R11.2 Oral candidiasis B37.0 Thrombocytopenia D69.6 Paroxysmal atrial fibrillation I48.0 Hypertension I10 Hypertension type: essential hypertension Anxiety with depression F41.8 Dyslipidemia E78.5 Hypokalemia E87.6 Prolonged QT interval R94.31 (1) Hypertension Hypertension type: essential hypertension Qualified Code(s): I10 - Essential (primary) hypertension
[2021-05-22] MEDS: ESCITALOPRAM OXALATE 20 MG TAB PO SCH (11:22)
--- NOTE | 2021-05-23 05:29 | Electrocardiogram Report ---
Test Reason : Blood Pressure : / mmHG Vent. Rate : 072 BPM Atrial Rate : 072 BPM P-R Int : 162 ms QRS Dur : 110 ms QT Int : 470 ms P-R-T Axes : 051 002 029 degrees QTc Int : 514 ms Normal sinus rhythm Prolonged QT Abnormal ECG When compared with ECG of 20-MAY-2021 23:05, No significant change was found Confirmed by Claude White ([id number]) on 05/23/2021 5:28:43 AM Referred By: REFERRED SELF Confirmed By:Claude White
[2021-05-23 06:51] LABS: Hemoglobin 12.2 g/dL (12.0-16.0); Mean Corpuscular Hemoglobin 29.7 pg (25-34); Mean Corpuscular Hgb Conc 33.9 g/dL (32-36); Mean Corpuscular Volume 87.6 fL (80-100); Mean Platelet Volume 11.2 fL (7.4-10.4); Platelet Count 179 K/uL (130-400); RDW Coefficient of Variation 13.2 % (11.5-14.5); RDW Standard Deviation 42.6 fL (36.4-46.3); Red Blood Count 4.11 M/uL (4.2-5.4); White Blood Count 7.51 K/uL (4.8-10.8)
[2021-05-23 07:20] LABS: Albumin Level 2.3 gm/dl (3.4-5.0); BUN Creatinine Ratio 18.6 (10-20); Calcium 8.3 mg/dl (8.5-10.1); Creatinine Clr Calc Pharmacy 87.3 ml/min; Est GFR (African American) 101.8 ml/min; Est GFR (Non-African American) 87.8 ml/min; Magnesium 2.3 mg/dl (1.8-2.4); Potassium 4.2 mmol/L (3.5-5.1)
[2021-05-23 07:23] LABS: Albumin Globulin Ratio 0.6 (0.9-2); Bilirubin,Total 0.9 mg/dl (0.2-1); Globulin 3.9 gm/dl (2.5-4.0); Total Protein 6.2 gm/dl (6.4-8.2)
[2021-05-23 07:24] LABS: Basophils # (auto) 0.04 K/uL (0-0.2); Basophils % (auto) 0.5 %; Immature Granulocytes # (auto) 0.02 K/uL (0.00-0.02); Immature Granulocytes % (auto) 0.3 %; Lymphocytes # (auto) 0.88 K/uL (1.2-3.4); Lymphocytes % (auto) 11.7 %; Monocytes # (auto) 1.05 K/uL (0.11-0.59); Neutrophils # (auto) 5.52 K/uL (1.4-6.5); Neutrophils % (auto) 73.5 %
[2021-05-23] MEDS: CHOLECALCIFEROL 1,000 UNITS 25 MCG TAB PO SCH (08:18)
[2021-05-23] MEDS: ATORVASTATIN 40 MG TAB PO SCH (08:19)
[2021-05-23] MEDS: VITAMIN B COMPLEX TAB PO SCH (08:19)
[2021-05-23] MEDS: APIXABAN 5 MG TABLET PO SCH (08:19)
[2021-05-23] MEDS: FLECAINIDE ACETATE 100 MG TABLET PO SCH (08:20)
[2021-05-23] MEDS: ESCITALOPRAM OXALATE 20 MG TAB PO SCH (08:20)
[2021-05-23] MEDS: ZINC SULFATE 220 MG CAPSULE PO SCH (08:20)
[2021-05-23] MEDS: METOPROLOL TARTRATE 50 MG TAB PO SCH (08:21)
[2021-05-23] MEDS: guaiFENesin 600 MG TABCR PO SCH (08:21)
[2021-05-23] MEDS: NYSTATIN SUSP 500,000 U/5 ML UDC PO SCH ×3 (08:22→16:18)
[2021-05-23] MEDS: dexAMETHasone 6 MG in SYRINGE 0 ML IV SCH (08:22)
[2021-05-23] MEDS: MAGNESIUM OXIDE 400 MG TAB PO SCH (08:23)
--- NOTE | 2021-05-23 11:54 | Hospitalist Progress Note ---
Date of Service May 23, 2021 Assessment & Plan (1) Acute hypoxemic respiratory failure due to COVID-19: Plan: COVID-19 pneumonia with hypoxia-she for started having symptoms on 05/07 and tested positive on 05/10 She is not vaccinated was up to 5L, now down to 2.5L with saturations around 90%, feeling better subjectively Continue dexamethasone 6 mg IV every morning, 10 day course, change to PO on discharge Continue Duonebs PRN, no wheezing today Continue guaifenesin extended release 12 mg p.o. twice daily Continue Vitamin D 1000 international units p.o. every morning and-zinc sulfate 20 mg p.o. every morning Patient does not qualify for remdesivir on the basis of time from initial symptoms -Add incentive spirometer and flutter valve she is compliant laying on her side try to wean down to room air and will then try to discharge to home (2) Diarrhea: Plan: 13 episodes of loose stool on 05/21- most likely from azithromycin which was stopped, no further diarrhea today C. difficile negative Start Imodium as needed no further IV fluids as diarrhea stopped and she is eating/drinking sufficiently (3) Nausea & vomiting: Plan: Secondary to COVID-19 Zofran as needed (4) Oral candidiasis: Plan: Start nystatin swish and swallow x14-day course-last day of treatment will be 06/04 (5) Thrombocytopenia: Plan: Platelets 119 upon admission, with baseline 154 Consistent with COVID-19 infection counts up to 156k today (6) Paroxysmal atrial fibrillation: Plan: Paroxysmal atrial fibrillation-remains in sinus rhythm here Continue apixaban 5 mg p.o. twice daily, flecainide 150 mg p.o. every 12 hours, metoprolol tartrate 50 mg p.o. twice daily. Continue telemetry monitoring (7) Hypertension: Plan: Blood pressure is elevated likely secondary to corticosteroids Continue home metoprolol (8) Anxiety with depression: Plan: resume Lexapro (9) Dyslipidemia: Plan: Continue atorvastatin (10) Hypokalemia: Plan: K is 3.7 today repeat tomorrow (11) Prolonged QT interval: Plan: Prolonged at 509 on EKG on 05/21 Discontinue azithromycin Okay to restart Lexapro Plan: DVT prophylaxis apixaban Disposition-continued stay on telemetry Admission and Anticipated Discharge Date Admission Date: May 20, 2021 Physical Exam Physical Exam: General: well developed, well nourished, slightly obese, no acute distress, comfortable Neck: supple, trachea midline, normal thyroid Lungs: clear to auscultation bilaterally, slightly tachypneic, no accessory muscle use, no distress Heart: regular S1 and S2, no murmur, peripheral pulses normal, capillary refill normal, no edema Abdomen: soft, NT, ND, + BS, no hepatomegaly, normal to percussion Extremities: normal in appearance, no cyanosis, no petechiae, strength is 5/5 bilaterally Neuro: awake, cooperative, moves all extremities, no focal motor deficits, CN II-XII intact, sensation in extremities intact, normal speech Skin: warm, dry, no rash, normal turgor Psych: Awake, alert oriented x 3, euthymic affect Results & Data Results & Data ([facility]) Vital Signs (Past 12 Hours) Vital Signs Temp Pulse Pulse Resp BP Pulse Ox 05/23/21 11:37 36.8 C 54 L 19 145/68 H 90 05/23/21 07:16 36.9 C 56 L 20 150/65 H 93 05/23/21 04:15 37.1 C 60 18 161/80 H 92 05/23/21 00:00 55 L PG Care Time/CCT Total # of Minutes Spent Total Time Spent with Patient: Total time spent is greater than 50% in coordination of care (as documented) at patient's floor/unit and/or counseling patient: Coding Diagnoses Acute hypoxemic respiratory failure due to COVID-19 U07.1; J96.01 Diarrhea R19.7 Nausea & vomiting R11.2 Oral candidiasis B37.0 Thrombocytopenia D69.6 Paroxysmal atrial fibrillation I48.0 Hypertension I10 Hypertension type: essential hypertension Anxiety with depression F41.8 Dyslipidemia E78.5 Hypokalemia E87.6 Prolonged QT interval R94.31 (1) Hypertension Hypertension type: essential hypertension Qualified Code(s): I10 - Essential (primary) hypertension
--- NOTE | 2021-05-24 06:03 | Electrocardiogram Report ---
Test Reason : Blood Pressure : / mmHG Vent. Rate : 060 BPM Atrial Rate : 060 BPM P-R Int : 190 ms QRS Dur : 106 ms QT Int : 482 ms P-R-T Axes : 052 009 021 degrees QTc Int : 482 ms Normal sinus rhythm Normal ECG When compared with ECG of 21-MAY-2021 05:58, No significant change was found Confirmed by Claude White ([id number]) on 05/24/2021 6:03:21 AM Referred By: REFERRED SELF Confirmed By:Claude White
--- NOTE | 2021-05-24 10:16 | Discharge Summary ---
Date of Service May 23, 2021 Admission HPI Per Admitting Provider The patient is a 71-year-old female with a past medical history including hyperlipidemia, sinus bradycardia, hypertension, paroxysmal atrial fibrillation, tricuspid regurgitation, solitary thyroid nodule, right sciatica, chronic anticoagulation, diverticulosis, and diffuse goiter. Patient has symptoms that began on May 07, and had a positive COVID-19test on May 10. She was advised to remain at home and in general live healthfully. During his interval, patient had persistent generalized fatigue, loss of taste and smell, and was noted today by her daughter to have a pulse ox at home in the upper 80s. Chest x-ray: Multifocal pneumonia Abnormal laboratories: Platelets 119, potassium 3.1, total bilirubin 1.2, AST 52, calcium 8.3, albumin 2.6 COVID-19 testing was positive on 05/10/2021 From the ED the patient received: Dexamethasone 6 mg IV, NSS 500 mL, morphine sulfate 2 mg IV, and calcium gluconate 1 g IV. Principal Diagnosis COVID 19 pneumonia Acute hypoxic respiratory failure Discharge Exam General: well developed, well nourished, obese female, no acute distress, comfortable Neck: supple, trachea midline, normal thyroid Lungs: clear to auscultation bilaterally, normal respiratory effort, no accessory muscle use, no distress Heart: regular S1 and S2, no murmur, peripheral pulses normal, capillary refill normal, no edema Abdomen: soft, NT, ND, + BS, no hepatomegaly, normal to percussion Extremities: normal in appearance, no cyanosis, no petechiae, strength is 5/5 bilaterally Neuro: awake, cooperative, moves all extremities, no focal motor deficits, CN II-XII intact, sensation in extremities intact, normal speech Skin: warm, dry, no rash, normal turgor Psych: Awake, alert oriented x 3, euthymic affect Discharge Data Allergies Allergy/AdvReac Type Severity Reaction Status Date / Time Penicillins Allergy Mild hives Verified 05/20/21 23:03 Sulfa (Sulfonamide Allergy Mild hives Verified 05/20/21 23:03 Antibiotics) lactose AdvReac Verified 05/23/21 11:01 Consultations 05/20/21 23:07 ED Decision to Admit Stat Hospital Course (1) Acute hypoxemic respiratory failure due to COVID-19: COVID-19 pneumonia with hypoxia-she for started having symptoms on 05/07 and tested positive on 05/10 She is not vaccinated was up to 5L, now down to 0.5L at rest 2 step on day of discharge, use 2L at rest and 3L on exertion treated with dexamethasone 6 mg IV every morning, change to PO to complete 10 day course Patient does not qualify for remdesivir on the basis of time from initial symptoms -Add incentive spirometer and flutter valve she is compliant laying on her side d/c to home, stay well nourished and well rested anticipate she will fully recover in 1-2 weeks (2) Diarrhea: 13 episodes of loose stool on 05/21- most likely from azithromycin which was stopped, no further diarrhea for 2 days C. difficile negative use Imodium as needed no further IV fluids as diarrhea stopped and she is eating/drinking sufficiently (3) Nausea & vomiting: Secondary to COVID-19 Zofran as needed (4) Oral candidiasis: continue nystatin swish and swallow, finish at least 7 days, could be continued further if needed follow up with PCP (5) Thrombocytopenia: Platelets 119 upon admission, with baseline 154 Consistent with COVID-19 infection counts up to 156k (6) Paroxysmal atrial fibrillation: Paroxysmal atrial fibrillation-remains in sinus rhythm here Continue apixaban 5 mg p.o. twice daily, flecainide 150 mg p.o. every 12 hours, metoprolol tartrate 50 mg p.o. twice daily. Continue telemetry monitoring (7) Hypertension: Blood pressure is elevated likely secondary to corticosteroids Continue home metoprolol (8) Anxiety with depression: resume Lexapro (9) Dyslipidemia: Continue atorvastatin (10) Hypokalemia: K is 3.7 today repeat tomorrow (11) Prolonged QT interval: Prolonged at 509 on EKG on 05/21 Discontinue azithromycin Okay to restart Lexapro as QT on 05/22 is 480 DVT prophylaxis apixaban Disposition- d/c to home Total Time Total Time Spent Total Time Spent (In Minutes): 33 minutes Discharge Plan Discharge Items Patient Disposition: Home - Self-Care Reason For Visit: COVID-19 PNEUMONIA WITH HYPOXIA Discharge Diagnosis: COVID 19 pneumonia Acute hypoxic respiratory failure Condition on Discharge: Good Goals: complete course of dexamethasone stay well nourished, well hydrated, get rest Activity: Resume your previous activity Weightbearing: Full weightbearing Non-emergency contact: Primary Care Provider Call non-emergency contact if: you have any medication questions and your symptoms worsen Follow-up/Referrals: Pro,Austen Chacon MD [Primary Care Provider] - (one week) Diet: Regular Addtl Attending Provider Instructions: Medications: - DEXAMETHASONE: 6mg daily in the morning for 7 more days to finish treatment for COVID pneumonia - NYSTATIN: swish and swallow four times a day for 7 more days for oral thrush COVID 19 pneumonia, acute hypoxic respiratory failure you are down to 2L at rest and 3L on exertion you were actually well on 0.5L at rest but the lowest setting on oxygen tank is 2L I anticipate that you will continue to get better over the next week, should wean off oxygen in 1-2 weeks follow up with Dr. Muñoz finish the course of dexamethasone typically I dirk prescribe a low dose blood thinner like Xarelto to prevent clots but you already take Eliquis for afib Diarrhea: most likely due to the azithromycin (antibiotic) that was stopped if you have issues at home you can take Imodium Oral thrush: common with using steroids, use the Nystatin for 7 days, if you still have sore throat follow up with Dr. Muñoz he could extend the course of treatment if needed Pending Studies at Discharge: No Stand-Alone Forms: My [facility], Smoking Cessation Medications and DC Order Prescriptions: New nystatin 100,000 unit/mL Suspension 5 ml PO QID 7 Days Qty: 140 RF: 0 dexamethasone 4 mg tablet 6 mg PO DAILY 7 Days Qty: 11 RF: 0 Continued cholecalciferol (vitamin D3) [Vitamin D3] 25 mcg (1,000 unit) capsule 5,000 unit PO DAILY Qty: 30 RF: 0 flecainide 150 mg tablet 150 mg PO Q12H Qty: 60 RF: 5 metoprolol tartrate 50 mg tablet 50 mg PO BID Qty: 180 RF: 3 Eliquis 5 mg tablet 5 mg PO BID Qty: 180 RF: 3 escitalopram oxalate [Lexapro] 20 mg tablet 20 mg PO DAILY Qty: 90 RF: 3 atorvastatin 40 mg tablet 40 mg PO DAILY Qty: 90 RF: 3 vitamin B complex Tablet 1 tab PO DAILY RF: 0 magnesium 250 mg Tablet 250 mg PO DAILY RF: 0 coQ10 (ubiquinol) 200 mg Capsule 200 mg PO DAILY RF: 0 Discharge Orders: Discharge Order (Routine); Ordered 05/23/21 Ordered By: Omar Otoole Admission Data Admit Date/Time: 05/20/21 23:43 Attending Provider: Omar Otoole Admit Provider: Modesto Harrell Primary Care Provider: Austen Muñoz Other Providers: Modesto Harerll Other Interventions: Discharge Summary Assessment (RN) Last Done: 05/23/21 16:57 Coding Level of Care Code D/C DAY MANAGEMENT >30 MINS Diagnoses Acute hypoxemic respiratory failure due to COVID-19 U07.1; J96.01 Diarrhea R19.7 Nausea & vomiting R11.2 Oral candidiasis B37.0 Thrombocytopenia D69.6 Paroxysmal atrial fibrillation I48.0 Hypertension I10 Hypertension type: essential hypertension Anxiety with depression F41.8 Dyslipidemia E78.5 Hypokalemia E87.6 Prolonged QT interval R94.31
== END 2021-05-23 18:01 | disposition home or self-care (01) | DRG 177 ==
LOC: ED 21:14 → SUATTDRO 23:43 → EDINP 23:43 → 2E 05-21 00:47

== ENCOUNTER 2021-11-14 13:52 | Observation (INO) ==
--- NOTE | 2021-11-14 14:15 | Emergency Department Note ---
History of Present Illness General Chief complaint: Syncope Stated complaint: FELL AT STORE, SYNCOPE, HIT HEAD Time Seen by Provider: 11/14/21 14:00 Source: patient and family History of Present Illness Provider complaint: Syncope Onset (ago): hour(s) Location: head Pain Consistency: + now resolved Maximum Pain Intensity: 8 Quality: + other (Syncopal episode) Relieved By: + none Associated symptoms: + headaches and + syncope; no chest pain, no cough, no fever/chills, no nausea/vomiting or no shortness of breath This is a 71-year-old female presents with a syncopal episode. The patient was shopping and she started to feel very lightheaded. She tried to move to a carpeted area but did not make it and passed out. She did hit her head on the hard floor. When she woke up there were 8 people surrounding her. She does complain of a headache on the left side of her head. She is on Eliquis for atrial fibrillation which she took at 9:30 AM today. She denies any other injuries from the fall. She has no upper or lower extremity, hip or neck pain. She does state that she has chronic neck pain but it is unchanged. She states that she has had episodes of feeling lightheaded for approximately a year and a half. She was started on a blood pressure medication at that time and every w [place] she would feel very lightheaded but she has never passed out. Since being taken off of that medication she still has episodes of dizziness but they are only occasional maybe about once a month. She has been on metoprolol for about 10 years. She denies any recent illness, fever, cough or cold symptoms, chest pain, shortness of breath, abdominal pain, vomiting, diarrhea, black or bloody stools, vaginal bleeding or urinary symptoms. Home Medications Medication Instructions Recorded Confirmed Type coQ10 (ubiquinol) 200 mg capsule 200 mg PO DAILY 06/03/18 11/14/21 History magnesium 250 mg tablet 250 mg PO DAILY 06/03/18 11/14/21 History vitamin B complex 1 tab PO DAILY 06/03/18 11/14/21 History escitalopram oxalate 20 mg tablet 20 mg PO DAILY #90 tab 07/17/21 11/14/21 Rx (Lexapro) flecainide 150 mg tablet 150 mg PO Q12H #60 tab 09/01/21 11/14/21 Rx metoprolol tartrate 50 mg tablet 50 mg PO BID #180 tab 09/01/21 11/14/21 Rx apixaban 5 mg tablet (Eliquis) 5 mg PO BID #180 tab 10/16/21 11/14/21 Rx atorvastatin 40 mg tablet 40 mg PO DAILY #90 tab 10/16/21 11/14/21 Rx cholecalciferol (vitamin D3) 125 125 mcg PO DAILY 11/14/21 11/14/21 History mcg (5,000 unit) tablet (Vitamin D3) Allergies Allergy/AdvReac Type Severity Reaction Status Date / Time Penicillins Allergy Intermediate hives Verified 11/14/21 14:57 Sulfa (Sulfonamide Allergy Intermediate hives Verified 11/14/21 14:57 Antibiotics) lactose AdvReac Intermediate Gastrointestinal Verified 11/14/21 14:57 Upset Past Med/Surg History Medical History Anxiety Anxiety with depression Depression Diverticulosis Exposure to strep throat Hiatal hernia History of cardioversion X 2 Hypercholesteremia Hypocalcemia Hypokalemia Internal hemorrhoids Leukopenia care home current use of anticoagulant Mitral valve prolapse Morbid obesity On anticoagulant therapy Palpitations Paroxysmal atrial fibrillation Paroxysmal atrial fibrillation Pulmonary hypertension Sciatica Sciatica of right side without back pain Skin lesion of left ear Solitary thyroid nodule Substernal thyroid goiter Thrombocytopenia Tricuspid regurgitation Surgical History H/O arthroscopic knee surgery LEFT H/O dilation and curettage History of colonoscopy History of knee replacement BILAT. History of tonsillectomy and adenoidectomy History of tooth extraction Nausea and vomiting after administration of anesthetic agent Family History Brother Family history of diabetes mellitus Stroke Father Diabetes Hypertension Coronary heart disease Stroke Mother Hypertension Ovarian cancer Unknown Coronary heart disease Ovarian cancer Social History Smoking Status: Never smoker Second Hand Exposure: Yes; Hx Alcohol Use: No Hx Substance Use: No Preferred Language: Fijian Communication Ability: Effective Visual Impairment: Partially Limited Hearing Ability: Normal Continuous [employer] Required: No Beliefs That Will Affect Care: None marital status: / Current Living Situation: Family Current Living Situation Comment: lives with children current occupational status: employed 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 and A total of 10 systems reviewed and were otherwise negative Physical Exam Vital Signs Vital Signs - 24 hr 11/14/21 13:53 11/14/21 14:10 11/14/21 14:15 Temperature 36.4 C L Temperature Source Temporal Artery Scan Pulse Rate 50 L Pulse Rate [Apical] 42 L Pulse Rhythm [Apical] Respiratory Rate 16 16 Respiratory Effort / Characteristics Non-Labored Respiratory Depth Normal Blood Pressure 162/108 H Blood Pressure [Left Arm] 184/99 H Blood Pressure Mean 126 Blood Pressure Mean [Left Arm] 127 Blood Pressure Position Sitting Pulse Oximetry 96 95 95 Oxygen Delivery Method Room Air Room Air Sepsis Recent Fever Within 48 Hours No Sepsis New/Unexplained Change in Mental Status No Sepsis Action Taken by Nursing No Action Required 11/14/21 14:45 Temperature Temperature Source Pulse Rate Pulse Rate [Apical] 39 L Pulse Rhythm [Apical] Irregular Respiratory Rate 16 Respiratory Effort / Characteristics Non-Labored Respiratory Depth Normal Blood Pressure Blood Pressure [Left Arm] 186/73 H Blood Pressure Mean Blood Pressure Mean [Left Arm] 110 Blood Pressure Position Pulse Oximetry 95 Oxygen Delivery Method Room Air Sepsis Recent Fever Within 48 Hours Sepsis New/Unexplained Change in Mental Status Sepsis Action Taken by Nursing Constitutional: Vital signs reviewed. Eyes: Pupils are equal round reactive to light. Conjunctiva are noninjected. ENT: Pharynx is clear without erythema or exudate. Mucous membranes are moist. No midline tenderness to the cervical spine. Respiratory: Clear to auscultation bilaterally. Breath sounds are equal bilaterally. Cardiovascular: Irregular rhythm. Bradycardic. GI: Soft, nondistended and nontender. Bowel sounds are present. Musculoskeletal: No peripheral edema. No lower extremity tenderness. No hip or upper extremity tenderness. Integumentary: No cyanosis. or jaundice. Neurologic: The patient is awake and alert. Cranial nerves II-XII are intact. Motor is 5 out of 5 all extremities. Sensation is intact to light touch all extremities. Normal speech. Psychiatric: Somewhat anxious. Course Administered Medications Discontinued Medications Sodium Chloride (Nss 1000ml) 500 mls @ 999 mls/hr IV .Q31M ONE Stop: 11/14/21 18:44 Last Admin: 11/14/21 18:22 Dose: 999 mls/hr Documented by: [id number] Tramadol HCl (Tramadol Hcl 50 Mg Tablet) 50 mg PO NOW STA Stop: 11/14/21 15:14 Last Admin: 11/14/21 15:16 Dose: 50 mg Documented by: [id number] Medical Decision Making Differential Diagnosis Intracranial hemorrhage, concussion, bradycardia, syncope, metabolic derangement, hypoglycemia, electrolyte abnormality, dysrhythmia Medical Records Attestation: I reviewed the patient's medical records. I did perform a limited focused review of portions of the patient's old chart on the electronic medical record. The patient has had no recent pertinent visits to this hospital. In November of last year she did see a flight engineer helicopter who noted that she had lightheadedness with losartan which was subsequently discontinued. Home Medications Current Medication List: was personally reviewed by me Laboratory Data Attestation: I reviewed the patient's lab results. Result diagrams: 11/14/21 14:15 11/14/21 14:15 Lab Results 11/14/21 11/14/21 11/14/21 Range/Units 14:15 14:15 14:15 WBC 9.54 (4.8-10.8) K/uL RBC 4.75 (4.2-5.4) M/uL Hgb 14.4 (12.0-16.0) g/dL POC Hgb (12.0-16.0) g/dl Hct 42.8 (37-47) % POC Hct (37-47) % MCV 90.1 (80-100) fL MCH 30.3 (25-34) pg MCHC 33.6 (32-36) g/dL RDW Std Deviation 46.5 H (36.4-46.3) fL RDW Coeff of Rodriguez 14.2 (11.5-14.5) % Plt Count 156 (130-400) K/uL MPV 12.7 H (7.4-10.4) fL Immature Gran % (Auto) 0.2 % Neut % (Auto) 68.8 % Lymph % (Auto) 19.6 % Brooks % (Auto) 8.4 % Eos % (Auto) 2.7 % Baso % (Auto) 0.3 % Neut # (Auto) 6.56 H (1.4-6.5) K/uL Lymph # (Auto) 1.87 (1.2-3.4) K/uL Brooks # (Auto) 0.80 H (0.11-0.59) K/uL Eos # (Auto) 0.26 (0-0.5) K/uL Baso # (Auto) 0.03 (0-0.2) K/uL Immature Gran # (Auto) 0.02 (0.00-0.02) K/uL PT 12.6 H (9.0-12.0) Seconds INR 1.2 H (0.9-1.1) APTT 29.1 (21.0-31.0) Seconds PTT Ratio 1.1 POC Sodium (135-144) mmol/L Sodium 136 (136-145) mmol/L POC Potassium (3.3-5.0) mmol/L Potassium 4.7 (3.5-5.1) mmol/L POC Chloride (101-112) mmol/L Chloride 102 (98-107) mmol/L Carbon Dioxide 27 (21-32) mmol/L POC Total CO2 (24-31) mmol/L Anion Gap 7 (3-11) POC Anion Gap (16-25) mmol/L POC BUN (7-18) mg/dl BUN 21 (6-23) mg/dl Creatinine 1.01 (0.6-1.2) mg/dl POC Creatinine (0.6-1.3) mg/dl Est Cr Clr Drug Dosing Not Reportable Est GFR ( Amer) 64.4 ml/min Est GFR (Non-Af Amer) 55.6 ml/min BUN/Creatinine Ratio 20.8 H (10-20) Glucose 107 H (70-99(Fasting)) mg/dl POC Glucose (other) (70-99) mg/dl Calcium 9.3 (8.5-10.1) mg/dl POC Ioniz Calcium [place] (1.12-1.32) mmol/l Magnesium 2.1 (1.7-2.4) mg/dl Total Bilirubin 1.3 H (0.2-1.0) mg/dl AST 26 (13-39) U/L ALT 28 (7-52) U/L Alkaline Phosphatase 71 (34-104) U/L Troponin I High Sens 9.0 (0-14) pg/ml Total Protein 7.3 (6.0-8.3) gm/dl Albumin 4.2 (3.4-5.0) gm/dl Globulin 3.1 (2.5-4.0) gm/dl Albumin/Globulin Ratio 1.4 (0.9-2) TSH (0.300-4.500) uIu/ml Urine Color Urine Appearance (Clear) Urine pH (4.5-7.5) Ur Specific [place] (1.000-1.030) Urine Protein (Negative) Urine Glucose (UA) (Negative) Urine Ketones (Negative) Urine Blood (Negative) Urine Nitrite (Negative) Urine Bilirubin (Negative) Urine Urobilinogen (Negative) Ur Leukocyte Esterase (Negative) SARS-CoV-2, RNA, NAAT (NEGATIVE) 11/14/21 11/14/21 11/14/21 Range/Units 14:15 14:17 14:20 WBC (4.8-10.8) K/uL RBC (4.2-5.4) M/uL Hgb (12.0-16.0) g/dL POC Hgb 14.6 (12.0-16.0) g/dl Hct (37-47) % POC Hct 43 (37-47) % MCV (80-100) fL MCH (25-34) pg MCHC (32-36) g/dL RDW Std Deviation (36.4-46.3) fL RDW Coeff of Rodriguez (11.5-14.5) % Plt Count (130-400) K/uL MPV (7.4-10.4) fL Immature Gran % (Auto) % Neut % (Auto) % Lymph % (Auto) % Brooks % (Auto) % Eos % (Auto) % Baso % (Auto) % Neut # (Auto) (1.4-6.5) K/uL Lymph # (Auto) (1.2-3.4) K/uL [place] # (Auto) (0.11-0.59) K/uL Eos # (Auto) (0-0.5) K/uL Baso # (Auto) (0-0.2) K/uL Immature Gran # (Auto) (0.00-0.02) K/uL PT (9.0-12.0) Seconds INR (0.9-1.1) APTT (21.0-31.0) Seconds PTT Ratio POC Sodium 137 (135-144) mmol/L Sodium (136-145) mmol/L POC Potassium 4.9 (3.3-5.0) mmol/L Potassium (3.5-5.1) mmol/L POC Chloride 102 (101-112) mmol/L Chloride (98-107) mmol/L Carbon Dioxide (21-32) mmol/L POC Total CO2 28 (24-31) mmol/L Anion Gap (3-11) POC Anion Gap 14.0 L (16-25) mmol/L POC BUN 25 H (7-18) mg/dl BUN (6-23) mg/dl Creatinine (0.6-1.2) mg/dl POC Creatinine 1.0 (0.6-1.3) mg/dl Est Cr Clr Drug Dosing Est GFR ( Amer) ml/min Est GFR (Non-Af Amer) ml/min BUN/Creatinine Ratio (10-20) Glucose (70-99(Fasting)) mg/dl POC Glucose (other) 113 H (70-99) mg/dl Calcium (8.5-10.1) mg/dl POC Ioniz Calcium [place] 1.16 (1.12-1.32) mmol/l Magnesium (1.7-2.4) mg/dl Total Bilirubin (0.2-1.0) mg/dl AST (13-39) U/L ALT (7-52) U/L Alkaline Phosphatase (34-104) U/L Troponin I High Sens (0-14) pg/ml Total Protein (6.0-8.3) gm/dl Albumin (3.4-5.0) gm/dl Globulin (2.5-4.0) gm/dl Albumin/Globulin Ratio (0.9-2) TSH 1.300 (0.300-4.500) uIu/ml Urine Color Urine Appearance (Clear) Urine pH (4.5-7.5) Ur Specific [place] (1.000-1.030) Urine Protein (Negative) Urine Glucose (UA) (Negative) Urine Ketones (Negative) Urine Blood (Negative) Urine Nitrite (Negative) Urine Bilirubin (Negative) Urine Urobilinogen (Negative) Ur Leukocyte Esterase (Negative) SARS-CoV-2, RNA, NAAT NEGATIVE (NEGATIVE) 11/14/21 Range/Units 15:20 WBC (4.8-10.8) K/uL RBC (4.2-5.4) M/uL Hgb (12.0-16.0) g/dL POC Hgb (12.0-16.0) g/dl Hct (37-47) % POC Hct (37-47) % MCV (80-100) fL MCH (25-34) pg MCHC (32-36) g/dL RDW Std Deviation (36.4-46.3) fL RDW Coeff of Rodriguez (11.5-14.5) % Plt Count (130-400) K/uL MPV (7.4-10.4) fL Immature Gran % (Auto) % Neut % (Auto) % Lymph % (Auto) % Brooks % (Auto) % Eos % (Auto) % Baso % (Auto) % Neut # (Auto) (1.4-6.5) K/uL Lymph # (Auto) (1.2-3.4) K/uL [place] # (Auto) (0.11-0.59) K/uL Eos # (Auto) (0-0.5) K/uL Baso # (Auto) (0-0.2) K/uL Immature Gran # (Auto) (0.00-0.02) K/uL PT (9.0-12.0) Seconds INR (0.9-1.1) APTT (21.0-31.0) Seconds PTT Ratio POC Sodium (135-144) mmol/L Sodium (136-145) mmol/L POC Potassium (3.3-5.0) mmol/L Potassium (3.5-5.1) mmol/L POC Chloride (101-112) mmol/L Chloride (98-107) mmol/L Carbon Dioxide (21-32) mmol/L POC Total CO2 (24-31) mmol/L Anion Gap (3-11) POC Anion Gap (16-25) mmol/L POC BUN (7-18) mg/dl BUN (6-23) mg/dl Creatinine (0.6-1.2) mg/dl POC Creatinine (0.6-1.3) mg/dl Est Cr Clr Drug Dosing Est GFR ( Amer) ml/min Est GFR (Non-Af Amer) ml/min BUN/Creatinine Ratio (10-20) Glucose (70-99(Fasting)) mg/dl POC Glucose (other) (70-99) mg/dl Calcium (8.5-10.1) mg/dl POC Ioniz Calcium [place] (1.12-1.32) mmol/l Magnesium (1.7-2.4) mg/dl Total Bilirubin (0.2-1.0) mg/dl AST (13-39) U/L ALT (7-52) U/L Alkaline Phosphatase (34-104) U/L Troponin I High Sens (0-14) pg/ml Total Protein (6.0-8.3) gm/dl Albumin (3.4-5.0) gm/dl Globulin (2.5-4.0) gm/dl Albumin/Globulin Ratio (0.9-2) TSH (0.300-4.500) uIu/ml Urine Color Yellow Urine Appearance Clear (Clear) Urine pH 5.5 (4.5-7.5) Ur Specific [place] 1.018 (1.000-1.030) Urine Protein Negative (Negative) Urine Glucose (UA) Negative (Negative) Urine Ketones Negative (Negative) Urine Blood Negative (Negative) Urine Nitrite Negative (Negative) Urine Bilirubin Negative (Negative) Urine Urobilinogen Negative (Negative) Ur Leukocyte Esterase Negative (Negative) SARS-CoV-2, RNA, NAAT (NEGATIVE) Imaging Data Radiologist's Impression: Cervical Spine CT 11/14/21 14:09 CT OF THE CERVICAL SPINE WITHOUT CONTRAST CLINICAL HISTORY: Fall. Evaluate for fracture. COMPARISON STUDY: No previous studies for comparison. TECHNIQUE: Helical axial images of the cervical spine were obtained without IV contrast. Sagittal and coronal reconstructions were viewed. Automated exposure control was utilized for the study. A dose lowering technique was utilized adhering to the principles of ALARA. FINDINGS: Alignment of the cervical spine is anatomic. Vertebral body heights are maintained. No acute cervical spine fracture or subluxation is present. There is no prevertebral edema. Facet joints are intact. Severe multilevel facet arthrosis is present. There is moderate multilevel degenerative disc disease. Multinodular thyroid goiter is again noted. This was shown on chest CT of August 17, 2014. An adjacent prominent right peritracheal lymph node is similar to prior CT. IMPRESSION: No acute cervical spine fracture or subluxation. ACT 112: Negative or not required by law. Electronically signed by: Nba Arce M.D. 11/14/2021 2:53 PM Chest X-Ray 11/14/21 14:10 XR chest 1V portable CLINICAL HISTORY: syncope COMPARISON STUDY: No previous studies for comparison. FINDINGS: There is no pneumothorax or pleural effusion. Mediastinal widening is unchanged and due to a thyroid goiter. Opacity along left heart border favors atelectasis or scarring. Cardiomegaly is noted without evidence for pulmonary edema. No consolidation to suggest pneumonia. IMPRESSION: No acute cardiopulmonary findings. Cardiomegaly. ACT 112: Negative or not required by law. Electronically signed by: Nba Arce M.D. 11/14/2021 2:[address] 11/14/21 14:10 CT OF THE HEAD WITHOUT CONTRAST CLINICAL HISTORY: syncope on eliquis COMPARISON STUDY: No previous studies for comparison. CT DOSE: 1458.14 mGy.cm TECHNIQUE: Helical axial images of the head were obtained without IV contrast. Automated exposure control was utilized for the study. A dose lowering technique was utilized adhering to the principles of ALARA. FINDINGS: No acute intracranial hemorrhage, midline shift or mass effect is present. The ventricular system is unremarkable. The basal cisterns are patent. No extra-axial collections are present. There are no findings to suggest acute dural sinus thrombosis or acute territorial infarct. No significant calvarial abnormalities are present. Visualized portions of the sinuses and mastoid air cells are clear. Left posterior scalp contusion is present. IMPRESSION: 1. No acute intracranial findings. 2. Left posterior scalp contusion. No calvarial fracture. ACT 112: Negative or not required by law. Electronically signed by: Nba Arce M.D. 11/14/2021 2:49 PM ECG Data Attestation: I personally reviewed and interpreted this ECG as follows: Indication: + syncope Rate (beats per minute): 50 Rhythm: + sinus bradycardia ECG ST segments: no ST elevation ECG Findings: + PVCs Comparison ECG Date: from (May 22, 2021) Change: the following changes noted (Bradycardia and PVCs are new.) Head Trauma GCS Score: 15 MDM Narrative I did evaluate the patient as noted above. The patient is presenting with a syncopal episode while shopping. She did have a head injury and is on Eliquis for paroxysmal A. fib. IV access was established. I did place an order for continuous cardiac monitoring. The monitor showed she has sinus bradycardia with PVCs with a heart rate of 38. She is hypertensive and so I did not give treat her bradycardia with atropine or pacing. I did order and personally review the patient's 12-lead EKG as described above. She has sinus bradycardia with no acute ischemic changes. I did order and personally reviewed the images of the patient's chest x-ray as described above. This is unremarkable. I did order and review the patient's blood work as noted in the electronic medical record. CBC is unremarkable without leukocytosis or anemia. Coags show an INR 1.2. CMP is unremarkable other than a total bili of 1.3. Bedside glucose is 113. High-sensitivity troponin is negative. TSH is within normal limits. I did order a CT of the head and cervical spine. I did review the images myself as well as the radiology report as described above. There is no evidence of acute process within the brain. She has a small scalp contusion. No cervical fracture. Screening for COVID is negative. I did reassess the patient multiple times. She did complain of a headache and declined Tylenol as she stated that it did not work for her. She states she has been taking Aleve at home. I did warn her against using NSAIDs in the future given that she is on Eliquis. She does state that Ultram works for her and so she was given 50 mg of Ultram. Her heart rate is now 51. She is hypertensive. She does not feel lightheaded sitting up in bed. She states her headache is much better after the Ultram. I did discuss the case with flight engineer helicopter. He is dated that either he or Dr. Cm with see her. I did discuss case with the hospitalist and therapeutic case manager. Her heart rate remained in the 40s to 50s. Impression & Plan Bradycardia, Anticoagulated, Syncope, Acute head injury Discharge Plan Visit Data Chief Complaint: Syncope Stated Complaint: FELL AT STORE, SYNCOPE, HIT HEAD ED Provider: Xiang Timmons Discharge Problem: Bradycardia, Anticoagulated, Syncope, Acute head injury Patient Disposition: Admitted As Inpatient Discharge Instructions Interventions: ED Discharge Assessment Last Done: 11/14/21 18:23 Discharge Problem: Syncope Qualifiers: Syncope type: unspecified Qualified Code(s): R55 - Syncope and collapse Acute head injury Qualifiers: Encounter type: initial encounter Qualified Code(s): S09.90XA - Unspecified injury of head, initial encounter
[2021-11-14 14:29] LABS: iSTAT Hemoglobin 14.6 g/dl (12.0-16.0); iSTAT Ionized Calcium 1.16 mmol/l (1.12-1.32); iSTAT Potassium 4.9 mmol/L (3.3-5.0)
[2021-11-14 14:36] LABS: Basophils # (auto) 0.03 K/uL (0-0.2); Basophils % (auto) 0.3 %; Eosinophils # (auto) 0.26 K/uL (0-0.5); Eosinophils % (auto) 2.7 %; Hematocrit (blood only) 42.8 % (37-47); Hemoglobin 14.4 g/dL (12.0-16.0); Immature Granulocytes # (auto) 0.02 K/uL (0.00-0.02); Immature Granulocytes % (auto) 0.2 %; Lymphocytes # (auto) 1.87 K/uL (1.2-3.4); Lymphocytes % (auto) 19.6 %; Mean Corpuscular Hemoglobin 30.3 pg (25-34); Mean Corpuscular Hgb Conc 33.6 g/dL (32-36); Mean Corpuscular Volume 90.1 fL (80-100); Mean Platelet Volume 12.7 fL (7.4-10.4); Monocytes % (auto) 8.4 %; Neutrophils # (auto) 6.56 K/uL (1.4-6.5); Neutrophils % (auto) 68.8 %; Platelet Count 156 K/uL (130-400); RDW Coefficient of Variation 14.2 % (11.5-14.5); RDW Standard Deviation 46.5 fL (36.4-46.3); Red Blood Count 4.75 M/uL (4.2-5.4); White Blood Count 9.54 K/uL (4.8-10.8)
[2021-11-14 14:46] LABS: INR 1.2 (0.9-1.1); Partial Thromboplastin Ratio 1.1; Partial Thromboplastin Time 29.1 Seconds (21.0-31.0); Prothrombin Time 12.6 Seconds (9.0-12.0)
--- NOTE | 2021-11-14 14:47 | XRay Report ---
XR chest 1V portable CLINICAL HISTORY: syncope COMPARISON STUDY: No previous studies for comparison. FINDINGS: There is no pneumothorax or pleural effusion. Mediastinal widening is unchanged and due to a thyroid goiter. Opacity along left heart border favors atelectasis or scarring. Cardiomegaly is not ed without evidence for pulmonary edema. No consolidation to suggest pneumonia. IMPRESSION: No acute cardiopulmonary findings. Cardiomegaly. ACT 112: Negative or not required by law. Electronically signed by: Nba Arce M.D. 11/14/2021 2:46 PM
[2021-11-14 14:51] LABS: Alanine Aminotransferase 28 U/L (7-52); Albumin Globulin Ratio 1.4 (0.9-2); Albumin Level 4.2 gm/dl (3.4-5.0); Alkaline Phosphatase 71 U/L (34-104); Anion Gap 7 (3-11); Aspartate Aminotransferase 26 U/L (13-39); BUN Creatinine Ratio 20.8 (10-20); Bilirubin,Total 1.3 mg/dl (0.2-1.0); Blood Urea Nitrogen 21 mg/dl (6-23); Calcium 9.3 mg/dl (8.5-10.1); Carbon Dioxide 27 mmol/L (21-32); Chloride 102 mmol/L (98-107); Est GFR (African American) 64.4 ml/min; Est GFR (Non-African American) 55.6 ml/min; Globulin 3.1 gm/dl (2.5-4.0); Glucose 107 mg/dl (70-99(Fasting)); Magnesium 2.1 mg/dl (1.7-2.4); Potassium 4.7 mmol/L (3.5-5.1); Sodium 136 mmol/L (136-145); Total Protein 7.3 gm/dl (6.0-8.3)
--- NOTE | 2021-11-14 14:52 | CT Scan Report ---
CT OF THE HEAD WITHOUT CONTRAST CLINICAL HISTORY: syncope on eliquis COMPARISON STUDY: No previous studies for comparison. CT DOSE: 1458.14 mGy.cm TECHNIQUE: Helical axial images of the head were obtained without IV contrast. Automated exposure con trol was utilized for the study. A dose lowering technique was utilized adhering to the principles o f ALARA. FINDINGS: No acute intracranial hemorrhage, midline shift or mass effect is present. The ventricular system is unremarkable. The basal cisterns are patent. No extra-axial collections are present. There are no findings to suggest acute dural sinus thrombosis or acute territorial infarct. No significant calvarial abnormalities are present. Visualized portions of the sinuses and mastoid air cells are norma ar. Left posterior scalp contusion is present. IMPRESSION: 1. No acute intracranial findings. 2. Left posterior scalp contusion. No calvarial fracture. ACT 112: Negative or not required by law. Electronically signed by: Nba Arce M.D. 11/14/2021 2:49 PM
--- NOTE | 2021-11-14 14:54 | CT Scan Report ---
CT OF THE CERVICAL SPINE WITHOUT CONTRAST CLINICAL HISTORY: Fall. Evaluate for fracture. COMPARISON STUDY: No previous studies for comparison. TECHNIQUE: Helical axial images of the cervical spine were obtained without IV contrast. Sagittal a nd coronal reconstructions were viewed. Automated exposure control was utilized for the study. A do se lowering technique was utilized adhering to the principles of ALARA. FINDINGS: Alignment of the cervical spine is anatomic. Vertebral body heights are maintained. No acut e cervical spine fracture or subluxation is present. There is no prevertebral edema. Facet joints are intact. Severe multilevel facet arthrosis is present. There is moderate multilevel degenerative dis c disease. Multinodular thyroid goiter is again noted. This was shown on chest CT of August 17. An adjacent prominent right peritracheal lymph node is similar to prior CT. IMPRESSION: No acute cervical spine fracture or subluxation. ACT 112: Negative or not required by law. Electronically signed by: Nba Arce M.D. 11/14/2021 2:53 PM
[2021-11-14] MEDS ORDERED: traMADol HCL 50 MG TABLET PO STA (15:13)
[2021-11-14 15:45] LABS: Appearance Urine Clear (Clear); Bilirubin Urine Negative (Negative); Blood Urine Negative (Negative); Color Urine Yellow; Glucose Urine UA Negative (Negative); Ketones Urine Negative (Negative); Leukocyte Esterase Urine Negative (Negative); Nitrite Urine Negative (Negative); Protein Urine Negative (Negative); Specific Gravity Urine 1.018 (1.000-1.030); Urobilinogen Urine Negative (Negative); pH Urine 5.5 (4.5-7.5)
--- NOTE | 2021-11-14 16:22 | History & Physical Report ---
Date of Service November 14, 2021 Assessment & Plan (1) Bradycardia: Plan: Sinus bradycardia - Secondary to BB and flecainide - although no clear reason it was worse today ?converted to sinus rhythm Stop metoprolol. Continue flecainide. Consult cardiology (2) Paroxysmal atrial fibrillation: Plan: Continue flecainide for rhythm control Stop metoprolol - discussed risk of RVR when she goes back into a. fib which she is aware of Continue anticoagulation with Eliquis 5mg PO BID (3) Anxiety with depression: Plan: Continue Lexapro 20mg PO daily (4) Hypertension: Plan: Monitor off metoprolol as above (5) Contusion of left temporofrontal scalp: Plan: Given she is on Eliquis close monitoring for neurological change of the following days should be monitored and have repeat labs. Recommend patient is supervised for the next 7 days due to risk of subdural hematoma. Plan: VTE Prophylaxis - Eliquis Diet - heart healthy Disposition - observation to PCU Admission and Anticipated Discharge Date Admission Date: November 14, 2021 History of Present Illness Chief Complaint: Syncope Primary Care Provider: Austen Muñoz MD Rebeka Dumont is a 71 year old who presents to the ER after a syncopal event. She reports feeling dizzy for approximately 30 seconds before losing consciousness. She does not remember falling but does remember hitting her head. She thinks she only lost consciousness for a few seconds per witnesses. Her fall was from standing in [employer] store. She reports a significant history or presyncope but usually gets tunnel vision prior to episodes which did not happen today. She reports previous improvement after losartan was discontinued. She has known paroxysmal atrial fibrillation for which she takes flecainide and metoprolol. She reports always feeling when she goes into this as she doesn't feel well. She was last in atrial fibrillation when she had COVID on May. Converted to NSR after a month. Previously she has required cardioversion to convert on two occasions. In the ER she was noted to have a sinus bradycardia with PVCs on EKG. She was referred to medicine for admission and ongoing management of syncope. Allergies Allergy/AdvReac Type Severity Reaction Status Date / Time Penicillins Allergy Intermediate hives Verified 11/14/21 14:57 Sulfa (Sulfonamide Allergy Intermediate hives Verified 11/14/21 14:57 Antibiotics) lactose AdvReac Intermediate Gastrointestinal Verified 11/14/21 14:57 Upset Home Medications Medication Instructions Recorded Confirmed Type coQ10 (ubiquinol) 200 mg capsule 200 mg PO DAILY 06/03/18 11/14/21 History magnesium 250 mg tablet 250 mg PO DAILY 06/03/18 11/14/21 History vitamin B complex 1 tab PO DAILY 06/03/18 11/14/21 History escitalopram oxalate 20 mg tablet 20 mg PO DAILY #90 tab 07/17/21 11/14/21 Rx (Lexapro) flecainide 150 mg tablet 150 mg PO Q12H #60 tab 09/01/21 11/14/21 Rx metoprolol tartrate 50 mg tablet 50 mg PO BID #180 tab 09/01/21 11/14/21 Rx apixaban 5 mg tablet (Eliquis) 5 mg PO BID #180 tab 10/16/21 11/14/21 Rx atorvastatin 40 mg tablet 40 mg PO DAILY #90 tab 10/16/21 11/14/21 Rx cholecalciferol (vitamin D3) 125 125 mcg PO DAILY 11/14/21 11/14/21 History mcg (5,000 unit) tablet (Vitamin D3) Past Med/Surg History Medical History Anxiety Anxiety with depression Depression Diverticulosis Exposure to strep throat Hiatal hernia History of cardioversion X 2 Hypercholesteremia Hypocalcemia Hypokalemia Internal hemorrhoids Leukopenia long term current use of anticoagulant Mitral valve prolapse Morbid obesity On anticoagulant therapy Palpitations Paroxysmal atrial fibrillation Paroxysmal atrial fibrillation Pulmonary hypertension Sciatica Sciatica of right side without back pain Skin lesion of left ear Solitary thyroid nodule Substernal thyroid goiter Thrombocytopenia Tricuspid regurgitation Surgical History H/O arthroscopic knee surgery LEFT H/O dilation and curettage History of colonoscopy History of knee replacement BILAT. History of tonsillectomy and adenoidectomy History of tooth extraction Nausea and vomiting after administration of anesthetic agent Family History Brother Family history of diabetes mellitus Stroke Father Diabetes Hypertension Coronary heart disease Stroke Mother Hypertension Ovarian cancer Unknown Coronary heart disease Ovarian cancer Social History Smoking Status: Never smoker Second Hand Exposure: Yes; Hx Alcohol Use: No Hx Substance Use: No Preferred Language: French Communication Ability: Effective Visual Impairment: Partially Limited Hearing Ability: Normal Preschool Teacher'S Assistant Required: No Beliefs That Will Affect Care: None marital status: / Current Living Situation: Family Current Living Situation Comment: lives with children current occupational status: employed 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 [employer] How many Children do You have: 3 How many Children do You have Comment: 2 girls 1 boy Other Information That Helps Us Care for You: No Feels Safe at Home: Yes Safety Concerns: Feels Safe At This Time Childhood Exposure to Second-Hand Smoke: Yes during the past year weight has: remained stable Dental Care, Regularly: Yes Physical Activity Frequency: Does not Exercise Seatbelt Use: always Sunscreen Use: Yes Assistive Devices: Glasses Review of Systems 2 Review of Systems: All systems reviewed & are unremarkable except as noted in HPI & below Physical Exam Constitutional: WD/WN, vitals as above Eyes: + anicteric sclerae; normal pupil size ENMT: external ear and nose normal, oropharynx normal Neck: trachea midline, no thyromegaly Respiratory: normal respiratory effort, lungs clear to auscultation Cardiovascular: Rate/Rhythm: + bradycardic and + irregularly irregular Heart Sounds: no murmur Extremities: normal capillary refill; no calf tenderness and no pedal edema Gastrointestinal (Abdomen): normal bowel sounds, soft, nontender, no hepatosplenomegaly Musculoskeletal: no cyanosis or clubbing, extremities motor strength 5/5 Skin: no rashes, warm and dry Neurologic: moves all extremities and awake; not confused Psychiatric: A+Ox3, euthymic affect Results & Data Results & Data ([facility]) Vital Signs (Past 12 Hours) Vital Signs Temp Pulse Pulse Resp BP BP Pulse Ox 11/14/21 14:45 39 L 16 186/73 H 95 11/14/21 14:15 95 11/14/21 14:10 42 L 16 184/99 H 95 11/14/21 13:53 36.4 C L 50 L 16 162/108 H 96 Laboratory Results Abnormal lab results 11/14/21 11/14/21 11/14/21 Range/Units 14:15 14:15 14:15 RDW Std Deviation 46.5 H (36.4-46.3) fL MPV 12.7 H (7.4-10.4) fL Neut # (Auto) 6.56 H (1.4-6.5) K/uL [place] # (Auto) 0.80 H (0.11-0.59) K/uL PT 12.6 H (9.0-12.0) Seconds INR 1.2 H (0.9-1.1) POC Anion Gap (16-25) mmol/L POC BUN (7-18) mg/dl BUN/Creatinine Ratio 20.8 H (10-20) Glucose 107 H (70-99(Fasting)) mg/dl POC Glucose (other) (70-99) mg/dl Total Bilirubin 1.3 H (0.2-1.0) mg/dl 11/14/21 Range/Units 14:17 RDW Std Deviation (36.4-46.3) fL MPV (7.4-10.4) fL Neut # (Auto) (1.4-6.5) K/uL [place] # (Auto) (0.11-0.59) K/uL PT (9.0-12.0) Seconds INR (0.9-1.1) POC Anion Gap 14.0 L (16-25) mmol/L POC BUN 25 H (7-18) mg/dl BUN/Creatinine Ratio (10-20) Glucose (70-99(Fasting)) mg/dl POC Glucose (other) 113 H (70-99) mg/dl Total Bilirubin (0.2-1.0) mg/dl Diagnostic Findings CT OF THE HEAD WITHOUT CONTRAST CLINICAL HISTORY: syncope on eliquis COMPARISON STUDY: No previous studies for comparison. CT DOSE: 1458.14 mGy.cm TECHNIQUE: Helical axial images of the head were obtained without IV contrast. Automated exposure control was utilized for the study. A dose lowering technique was utilized adhering to the principles of ALARA. FINDINGS: No acute intracranial hemorrhage, midline shift or mass effect is present. The ventricular system is unremarkable. The basal cisterns are patent. No extra-axial collections are present. There are no findings to suggest acute dural sinus thrombosis or acute territorial infarct. No significant calvarial abnormalities are present. Visualized portions of the sinuses and mastoid air cells are clear. Left posterior scalp contusion is present. IMPRESSION: 1. No acute intracranial findings. 2. Left posterior scalp contusion. No calvarial fracture. CT OF THE CERVICAL SPINE WITHOUT CONTRAST CLINICAL HISTORY: Fall. Evaluate for fracture. COMPARISON STUDY: No previous studies for comparison. TECHNIQUE: Helical axial images of the cervical spine were obtained without IV contrast. Sagittal and coronal reconstructions were viewed. Automated exposure control was utilized for the study. A dose lowering technique was utilized adhering to the principles of ALARA. FINDINGS: Alignment of the cervical spine is anatomic. Vertebral body heights are maintained. No acute cervical spine fracture or subluxation is present. There is no prevertebral edema. Facet joints are intact. Severe multilevel facet arthrosis is present. There is moderate multilevel degenerative disc disease. Multinodular thyroid goiter is again noted. This was shown on chest CT of August 17, 2014. An adjacent prominent right peritracheal lymph node is similar to prior CT. IMPRESSION: No acute cervical spine fracture or subluxation. XR chest 1V portable CLINICAL HISTORY: syncope COMPARISON STUDY: No previous studies for comparison. FINDINGS: There is no pneumothorax or pleural effusion. Mediastinal widening is unchanged and due to a thyroid goiter. Opacity along left heart border favors atelectasis or scarring. Cardiomegaly is noted without evidence for pulmonary edema. No consolidation to suggest pneumonia. IMPRESSION: No acute cardiopulmonary findings. Cardiomegaly. Medications Administered ER Medications Given: Tramadol 50mg PO ECG Rate (beats per minute): 50 Rhythm: sinus bradycardia Findings: + PAC and + PVC Comparison ECG Date: from (May 22, 2021) Change: the following changes noted (Nonspecific T wave abnormality no longer evident in Inferior leads, PVCs now present) Code Status & VTE Plan Code Status Full VTE Prophylaxis Plan VTE Prophylaxis will be ordered: Yes PG Care Time/CCT Total # of Minutes Spent Total Time Spent with Patient: Total time spent is greater than 50% in coordination of care (as documented) at patient's floor/unit and/or counseling patient: Coding Level of Care Code INT OBSERVATION CARE 70M LVL 3 Diagnoses Bradycardia R00.1 Anxiety with depression F41.8 Hypertension I10 Hypertension type: essential hypertension Paroxysmal atrial fibrillation I48.0 Contusion of left temporofrontal scalp S00.03XA (1) Hypertension Hypertension type: essential hypertension Qualified Code(s): I10 - Essential (primary) hypertension
--- NOTE | 2021-11-14 16:34 | Electrocardiogram Report ---
Test Reason : Blood Pressure : / mmHG Vent. Rate : 050 BPM Atrial Rate : 038 BPM P-R Int : 170 ms QRS Dur : 106 ms QT Int : 528 ms P-R-T Axes : 000 -10 059 degrees QTc Int : 481 ms Marked sinus bradycardia with occasional PVCs and PACs Abnormal ECG When compared with ECG of 22-MAY-2021 05:02, Premature ventricular complexes are now Present Nonspecific T wave abnormality no longer evident in Inferior leads Confirmed by Amari Cm ([id number]) on 11/14/2021 4:34:04 PM Referred By: Austen Muñoz Confirmed By:Cooper Cm
[2021-11-14] MEDS ORDERED: SODIUM CHLORIDE 0.9% 1000ML 500 ML IV ONE ×2 (18:14→18:31)
[2021-11-14] MEDS ORDERED: MAGNESIUM SULFATE / D5W 1 GM/100 ML BAG IV STA (18:27)
[2021-11-14] MEDS ORDERED: ACETAMINOPHEN 325 MG TAB PO PRN (19:31)
[2021-11-14] MEDS: METOPROLOL TARTRATE 25 MG TAB PO SCH (20:48)
[2021-11-14] MEDS: FLECAINIDE ACETATE 100 MG TABLET PO SCH (20:50)
[2021-11-14] MEDS: APIXABAN 5 MG TABLET PO SCH (20:50)
[2021-11-14] MEDS: traMADol HCL 50 MG TABLET PO PRN (22:22)
[2021-11-14] MEDS ORDERED: ATROPINE SULFATE 0.1 MG/ML 10ML SYR IV ONE (22:43)
[2021-11-15] MEDS ORDERED: CLINDAMYCIN 600 MG/54 ML BAG IV SCH (06:00)
--- NOTE | 2021-11-15 07:35 | Hospitalist Progress Note ---
Date of Service November 15, 2021 Assessment & Plan (1) Bradycardia: Plan: Sinus bradycardia - Secondary to BB and flecainide - although no clear reason it was worse today ?converted to sinus rhythm Stop metoprolol. Continue flecainide. Consult cardiology (2) Paroxysmal atrial fibrillation: Plan: Continue flecainide for rhythm control Stop metoprolol - discussed risk of RVR when she goes back into a. fib which she is aware of Continue anticoagulation with Eliquis 5mg PO BID (3) Anxiety with depression: Plan: Continue Lexapro 20mg PO daily (4) Hypertension: Plan: Monitor off metoprolol as above (5) Contusion of left temporofrontal scalp: Plan: Given she is on Eliquis close monitoring for neurological change of the following days should be monitored and have repeat labs. Recommend patient is supervised for the next 7 days due to risk of subdural hematoma. Plan: VTE Prophylaxis - Eliquis Diet - heart healthy Disposition - observation to PCU Admission and Anticipated Discharge Date Admission Date: November 14, 2021 Results & Data Results & Data ([facility]) Vital Signs (Past 12 Hours) Vital Signs Temp Pulse Pulse Resp BP Pulse Ox 11/15/21 06:41 36.6 C 45 L 18 160/64 H 95 11/15/21 03:06 36.8 C 49 L 18 164/72 H 94 11/14/21 23:20 36.6 C 49 L 18 160/82 H 95 11/14/21 22:17 42 L 11/14/21 21:44 36.5 C 44 L 16 161/68 H 93 (1) Hypertension Hypertension type: essential hypertension Qualified Code(s): I10 - Essential (primary) hypertension
[2021-11-15 08:37] LABS: Hematocrit (blood only) 40.5 % (37-47); Hemoglobin 13.9 g/dL (12.0-16.0); Mean Corpuscular Hgb Conc 34.3 g/dL (32-36); Mean Corpuscular Volume 90.4 fL (80-100); Mean Platelet Volume 12.5 fL (7.4-10.4); Platelet Count 115 K/uL (130-400); Platelet Estimate Decreased (Normal); RDW Coefficient of Variation 13.9 % (11.5-14.5); RDW Standard Deviation 45.9 fL (36.4-46.3); Red Blood Count 4.48 M/uL (4.2-5.4); White Blood Count 5.56 K/uL (4.8-10.8)
[2021-11-15] MEDS: ATORVASTATIN 40 MG TAB PO SCH (08:45)
[2021-11-15] MEDS: FLECAINIDE ACETATE 100 MG TABLET PO SCH ×2 (08:45→20:32)
[2021-11-15] MEDS: APIXABAN 5 MG TABLET PO SCH ×2 (08:45→20:32)
[2021-11-15] MEDS: CHOLECALCIFEROL 5,000 UNITS 125 MCG TAB PO SCH (08:45)
--- NOTE | 2021-11-15 08:45 | Cardiology Consultation ---
Date of Consultation November 15, 2021 Assessment & Plan (1) Syncope: (2) Sinus node dysfunction: (3) Paroxysmal atrial fibrillation: (4) On anticoagulant therapy: (5) Hypertension: 1. Syncope: Although we do not have documentation of her rhythm during her syncopal event with a very high likelihood it was due to bradycardia and hypotension. She has a history of worsening presyncope and we have documented atrial fibrillation with a moderately rapid ventricular response (which is uncomfortable but did not cause hemodynamic symptoms) as well as periods of bradycardia. I suspect that she has symptomatic bradycardia. Our options therefore are to record her symptoms for definitive diagnosis or to proceed with pacemaker implantation. Pacemaker implantation would be very helpful to allow us to treat her hypertension and her atrial fibrillation, and she also describes increasing difficulty with exertion which is probably chronotropic incompetence on rate control medications. She is agreeable to pacemaker implantation. I discussed the indications, procedure, risks and alternatives with her and she understands and agrees to proceed. Consent obtained. I also discussed sedation with her and she is agreeable. Consent obtained. 2. Sinus node dysfunction: She clearly has sinus node dysfunction on medications, however we are using the medications to control her atrial arrhythmia as well as a rate during it. 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 A pacemaker is indicated. 3. Paroxysmal atrial fibrillation: She has well-documented and continued paroxysmal atrial fibrillation. She is quite symptomatic during atrial fibrillation and although we do not have ideal control of her arrhythmia her current medications may be adequate if we can support her bradycardia. The new pacemaker is also have the ability to terminate the arrhythmia with antitachycardia pacing which is sometimes effective and sometimes not but we would attempt to use that modality. 4. Anticoagulation: She is on Eliquis and continues to have atrial fibrillation, as recently as yesterday in the emergency room. 1 option would be to discontinue the Eliquis and wait several days and implant the pacemaker, alternatively we can implant the pacemaker now. She has not had difficulty with bleeding, the bleeding risk would be somewhat elevated with pacemaker implantation at this time although it would be little safer with her atrial arrhythmia. She is agreeable to proceed with a slightly increased risk of bleeding which is likely not excessive. 5. Hypertension: She has significant hypertension and in the past has been on and off of blood pressure medications, often reduced because of symptoms of lightheadedness. I suspect a lot of the symptoms are rate related and hopefully with a pacemaker in place we can better manage her blood pressure. That would be especially so when she has a large pulse pressure which she does currently, probably as a function of bradycardia. History of Present Illness Reason for Consultation: Syncope Attending Physician: Manav Merritt MD History of Present Illness This is a 71-year-old woman who has a long history of atrial fibrillation. She was initially followed for her cardiology care in [place], she located here around mid 2011. She believes that her atrial fibrillation started around 1999 but then she went 8 to 9 years between her first and second episode and then they became more frequent. She did not have any episodes between August 2012 in July 2016, at that time she did present to the emergency room and was treated with Multaq 400 mg twice a day. She was started on anticoagulation arou 2016. On Holter monitoring in 2016 her heart rate average was around 106 bpm, she felt poorly during the rhythm and therefore had her first cardioversion performed July 24, 2016. Subsequently she had recurrence of atrial fibrillation on Multaq, she required cardioversion on June 06, 2018 where she was successfully converted to sinus rhythm. At that time she was on flecainide 100 mg twice a day. I had not seen her for some time as her was diagnosed with pancreatic cancer and subsequently . At her visit in early August 2020 she described having episodes of atrial fibrillation every few weeks and lasting from several to nearly 24 hours in duration. During the arrhythmia she does not feel well although she is happy that it converts spontaneously to sinus rhythm. She has not taken her blood pressure or heart rate during the episodes and I do not believe they have been documented electrocardiographically. She notes that she has frequent lightheaded episodes, sometimes these can last all day and they are somewhat orthostatic in nature. She has not taken her blood pressure or heart rate during these episodes. She thinks they might have improved with possible reduction in her metoprolol tartrate. She does report having presyncope twice, once early July and once in mid August 2020. She is on atorvastatin 40 mg daily and is evidently tolerating it. An echocardiogram done on September 01, 2020 showed normal left ventricular systolic function with mild concentric left ventricular hypertrophy and mild to moderate mitral regurgitation with a moderately dilated left atrium. At her office visit on September 19, 2020 she reported having increased frequency of atrial fibrillation and we discussed going up on the flecainide, however we did not. I did add losartan for blood pressure control. Subsequently she developed atrial fibrillation which was more sustained and was documented on November 14, 2020, at that time flecainide was increased to 150 mg twice a day however she was having symptoms of presyncope with the increase in flecainide and addition of losartan. She quit taking losartan and decreased her flecainide to 150 mg evening and 100 mg in the morning. She did contract COVID-19 in May 2021 and was hospitalized here for several days, she remained in sinus rhythm during that hospitalization. She did however develop atrial fibrillation which was documented on June 12, 2021 where her heart rate was 97 bpm on electrocardiography and she was on metoprolol tartrate 50 mg twice a day as well as flecainide 150 mg twice a day. She does admit to having what she calls "spells" over the last year, more frequent recently, where she will feel little bit lightheaded and presyncopal but did not pass out until presenting to the emergency room on November 14, 2021. She was shopping and began to feel very lightheaded, she then passed out and hit her head on a hard floor. She woke up with people surrounding her. She believes she was only out momentarily. In the emergency room she was in sinus bradycardia heart rates in the 30s and with pauses, however she converted to atrial fibrillation in the emergency room on the afternoon of November 14, 2021 with a heart rate of 102 bpm on ECG. She was in it for relatively short period time and then converted back to sinus bradycardia, unfortunately at the time that she converted back to sinus rhythm she was off of the monitor therefore we cannot tell if she had a postconversion pause. At the time of my evaluation this morning she is feeling well, she is in good spirits. She is concerned because her blood pressure remains elevated (she has a high pulse pressure probably due to her slow heart rate in part) but does not have lightheadedness or dizziness, she has been in bed however. An echocardiogram was done and I reviewed it at bedside, her LV function appears normal and she has no pericardial effusion or other significant abnormality. Allergies Allergy/AdvReac Type Severity Reaction Status Date / Time Penicillins Allergy Intermediate hives Verified 11/14/21 14:57 Sulfa (Sulfonamide Allergy Intermediate hives Verified 11/14/21 14:57 Antibiotics) lactose AdvReac Intermediate Gastrointestinal Verified 11/14/21 14:57 Upset Home Medications Medication Instructions Recorded Confirmed Type coQ10 (ubiquinol) 200 mg capsule 200 mg PO DAILY 06/03/18 11/14/21 History magnesium 250 mg tablet 250 mg PO DAILY 06/03/18 11/14/21 History vitamin B complex 1 tab PO DAILY 06/03/18 11/14/21 History escitalopram oxalate 20 mg tablet 20 mg PO DAILY #90 tab 07/17/21 11/14/21 Rx (Lexapro) flecainide 150 mg tablet 150 mg PO Q12H #60 tab 09/01/21 11/14/21 Rx metoprolol tartrate 50 mg tablet 50 mg PO BID #180 tab 09/01/21 11/14/21 Rx apixaban 5 mg tablet (Eliquis) 5 mg PO BID #180 tab 10/16/21 11/14/21 Rx atorvastatin 40 mg tablet 40 mg PO DAILY #90 tab 10/16/21 11/14/21 Rx cholecalciferol (vitamin D3) 125 125 mcg PO DAILY 11/14/21 11/14/21 History mcg (5,000 unit) tablet (Vitamin D3) Patient History Medical History Anxiety Anxiety with depression Depression Diverticulosis Exposure to strep throat Hiatal hernia History of cardioversion X 2 Hypercholesteremia Hypocalcemia Hypokalemia Internal hemorrhoids Leukopenia group home current use of anticoagulant Mitral valve prolapse Morbid obesity On anticoagulant therapy Palpitations Paroxysmal atrial fibrillation Paroxysmal atrial fibrillation Pulmonary hypertension Sciatica Sciatica of right side without back pain Skin lesion of left ear Solitary thyroid nodule Substernal thyroid goiter Thrombocytopenia Tricuspid regurgitation Surgical History H/O arthroscopic knee surgery LEFT H/O dilation and curettage History of colonoscopy History of knee replacement BILAT. History of tonsillectomy and adenoidectomy History of tooth extraction Nausea and vomiting after administration of anesthetic agent Family History Brother Family history of diabetes mellitus Stroke Father Diabetes Hypertension Coronary heart disease Stroke Mother Hypertension Ovarian cancer Unknown Coronary heart disease Ovarian cancer Social History Smoking Status: Never smoker Second Hand Exposure: Yes; Hx Alcohol Use: No Hx Substance Use: No Preferred Language: [place] Communication Ability: Effective Visual Impairment: Partially Limited Hearing Ability: Normal Staff Readiness Officer Required: No Beliefs That Will Affect Care: None marital status: / Current Living Situation: Family Current Living Situation Comment: lives with children current occupational status: employed 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 How many Children do You have: 3 How many Children do You have Comment: 2 girls 1 boy Other Information That Helps Us Care for You: No Feels Safe at Home: Yes Safety Concerns: Feels Safe At This Time Childhood Exposure to Second-Hand Smoke: Yes during the past year weight has: remained stable Dental Care, Regularly: Yes Physical Activity Frequency: Does not Exercise Seatbelt Use: always Sunscreen Use: Yes Assistive Devices: Glasses Review of Systems Review of Systems: All systems reviewed & are unremarkable except as noted in HPI & below Results & Data ([facility]) Vital Signs (Past 12 Hours) Vital Signs Temp Pulse Pulse Resp BP Pulse Ox 11/15/21 06:41 36.6 C 45 L 18 160/64 H 95 11/15/21 03:06 36.8 C 49 L 18 164/72 H 94 11/14/21 23:20 36.6 C 49 L 18 160/82 H 95 11/14/21 22:17 42 L 11/14/21 21:44 36.5 C 44 L 16 161/68 H 93 Laboratory Results Cardiac Enzymes 11/14/21 Range/Units 14:15 AST 26 (13-39) U/L Troponin I High Sens 9.0 (0-14) pg/ml Coagulation 11/14/21 Range/Units 14:15 PT 12.6 H (9.0-12.0) Seconds APTT 29.1 (21.0-31.0) Seconds CBC 11/14/21 11/15/21 Range/Units 14:15 08:03 WBC 9.54 5.56 (4.8-10.8) K/uL RBC 4.75 4.48 (4.2-5.4) M/uL Hgb 14.4 13.9 (12.0-16.0) g/dL Hct 42.8 40.5 (37-47) % Plt Count 156 115 L (130-400) K/uL Neut # (Auto) 6.56 H (1.4-6.5) K/uL Lymph # (Auto) 1.87 (1.2-3.4) K/uL [place]verse # (Auto) 0.80 H (0.11-0.59) K/uL Eos # (Auto) 0.26 (0-0.5) K/uL Baso # (Auto) 0.03 (0-0.2) K/uL Comprehensive Metabolic Panel 11/14/21 11/15/21 Range/Units 14:15 08:03 Sodium 136 138 (136-145) mmol/L Potassium 4.7 4.1 (3.5-5.1) mmol/L Chloride 102 105 (98-107) mmol/L Carbon Dioxide 27 26 (21-32) mmol/L BUN 21 14 (6-23) mg/dl Creatinine 1.01 0.78 (0.6-1.2) mg/dl Glucose 107 H 86 (70-99(Fasting)) mg/dl Calcium 9.3 8.9 (8.5-10.1) mg/dl AST 26 (13-39) U/L ALT 28 (7-52) U/L Alkaline Phosphatase 71 (34-104) U/L Total Protein 7.3 (6.0-8.3) gm/dl Albumin 4.2 (3.4-5.0) gm/dl Intake and Output 11/14/21 11/15/21 11/15/21 22:59 06:59 14:59 Intake Total 1100 / 1300 200 / 1300 Balance 1100 / 1300 200 / 1300 Intake: IV 1100 / 1100 Magnesium Sulfate / D5w 1 gm In 100 / 100 100 ml @ 100 mls/hr IV NOW STA Rx#:[id number] Sodium Chloride 0.9% 1000ML 500 1000 / 1000 ml @ 999 mls/hr IV .Q31M ONE Rx#:[id number] Oral 200 / 200 Other: Other Intake Source npo Weight 113.8 kg 113.4 kg Weight Measurement Method Built in [facility] Diagnostic Findings Telemetry: In the emergency room she was in atrial fibrillation however she was only on the monitor for short period of time, that heart rate is a little over 100 bpm. Then she came off the monitor and when she was put back on she was in sinus bradycardia predominantly in the low to mid 30s. She has a sinus arr hythmia with frequent pauses although nothing excessive. PG Care Time/CCT Total # of Minutes Spent Total Time Spent with Patient: Total time spent is greater than 50% in coordination of care (as documented) at patient's floor/unit and/or counseling patient: Coding Level of Care Code 73817 Initial Inpt Care Lvl 3 Diagnoses Syncope R55 Syncope type: unspecified Sinus node dysfunction I49.5 Paroxysmal atrial fibrillation I48.0 On anticoagulant therapy Z79.01 Hypertension I10 Hypertension type: essential hypertension (1) Syncope Syncope type: unspecified Qualified Code(s): R55 - Syncope and collapse (2) Hypertension Hypertension type: essential hypertension Qualified Code(s): I10 - Essential (primary) hypertension
[2021-11-15] MEDS: MAGNESIUM OXIDE 400 MG TAB PO SCH (08:46)
[2021-11-15] MEDS: ESCITALOPRAM OXALATE 20 MG TAB PO SCH (08:46)
[2021-11-15] MEDS: VITAMIN B COMPLEX TAB PO SCH (08:46)
[2021-11-15 08:48] LABS: BUN Creatinine Ratio 17.9 (10-20); Calcium 8.9 mg/dl (8.5-10.1); Creatinine Clr Calc Pharmacy 77.6 ml/min; Potassium 4.1 mmol/L (3.5-5.1)
[2021-11-15] MEDS: METOPROLOL TARTRATE 25 MG TAB PO SCH (09:00)
[2021-11-15] MEDS: traMADol HCL 50 MG TABLET PO PRN ×3 (09:03→20:32)
[2021-11-15] MEDS ORDERED: BUPIVACAINE 0.25% 30 ML VIAL ONE (09:53)
[2021-11-15] MEDS ORDERED: LIDOCAINE 1% LOCAL 20 ML VIAL ONE (09:53)
[2021-11-15] MEDS ORDERED: VANCOMYCIN HCL 1000MG/20ML VIAL ONE (09:53)
[2021-11-15] MEDS ORDERED: WATER, STERILE FOR INJ 10 ML VIAL ONE (09:53)
[2021-11-15] MEDS ORDERED: CLINDAMYCIN PHOS 300 MG/2 ML VIAL ONE (10:12)
--- NOTE | 2021-11-15 10:12 | Hospitalist Progress Note ---
Date of Service November 15, 2021 Assessment & Plan (1) Syncope: Plan: 71 yo F with a PMH of Afib with RVR s/p cardioversion x2 on Metoprolol and Flecainide who presented with syncopal event and symptomatic bradycardia. Syncope - Etiology most likely cardiogenic given history of dysrhythmias - Lack of underlying seizure, no witnessed convulsions, neurogenic syncope less likely - Lack of defecation, change in position, vasovagal syncope less likely - No preceding emotional event trigger, less likely reflex syncope - Blood pressure was elevated on arrival, orthostatic syncope is unlikely - Patient in sinus maxx arrival at 39 bpm, however with underlying history of paroxysmal atrial fibrillation. Has been converting intermittently between the two. 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 - Home regimen consists of rate control of Metoprolol, rhythm controlled with Flecainide and anti-coagulation with Eliquis 5 mg BID - Electrolytes normal on admission; TSH normal - Concurrent sinus bradycardia suspicious for tachy-maxx syndrome indicative of SA node dysfunction - Cardiology consult placed: recommending pacemaker placement today - After pacer is placed, can resume home Metoprolol and Flecainide - Per discussion with cardiology, will continue anticoagulation with Eliquis 5mg PO BID (3) Hypertension: Plan: - Patient will resume home metoprolol following pacer placement - Room to increase if necessary now that patient will have pacer (4) Contusion of left temporofrontal scalp: Plan: - Noted on admission Head CT - Consider repeat head CT within 7 days due to risk of subdural hematoma, as patient is on Eliquis Plan: Diet: Heart Healthy DVT Prophylaxis: Eliquis Dispo: Tele Code: Full Admission and Anticipated Discharge Date Admission Date: November 14, 2021 Supervising Physician Co-Signing Physician Notes I also saw the patient with the resident physician and confirmed johnson portions of the history and physical examination. I agree with the impression and plan as noted in the resident documentation. Upon our visit with the patient this afternoon, she is status post pacemaker placement. She has no complaints. Denies any chest pain or shortness of breath. She has not been out of bed since the procedure. She has been in a paced rhythm at 60 since returning to the unit. Exam 120/74, 60, 16, 36.7, 92% on room air Pleasant alert oriented. No distress appreciated. Heart regular Lungs clear with nonlabored respirations. Data Hemoglobin 13.9, WBC 5.56, platelet count 115. BUN 14, creatinine 0.78. Bradycardia with syncope, now status post pacemaker placement Atrial fibrillation Will increase activity this afternoon and until tomorrow morning and monitor heart rate She will need some amount of beta-blockade/rate control given her history of atrial relation with RVR; while she is on her percent paced at rest, we will see if this changes with activity/exertion. Additional as noted above Subjective Rebeka is feeling okay this morning. She has not had any palpitations, chest pain, presyncope or syncope. She described her recent history of presyncopal and syncopal events and how they've increased- stating that she's been having them 1-2x per week over the past months. Her only complaint this morning is a headache which she attributes to the fall. Review of Systems Review of Systems: see HPI Physical Exam Constitutional: WD/WN, vitals as above Eyes: + anicteric sclerae; normal pupil size ENMT: external ear and nose normal, oropharynx normal Neck: no carotid bruits Respiratory: normal respiratory effort, lungs clear to auscultation Cardiovascular: Rate/Rhythm: regular rhythm and + bradycardic Heart Sounds: no murmur Extremities: normal capillary refill; no calf tenderness and no pedal edema Gastrointestinal (Abdomen): normal bowel sounds, soft, nontender, no hepatosplenomegaly Musculoskeletal: no cyanosis or clubbing, extremities motor strength 5/5 Skin: no rashes, warm and dry Neurologic: moves all extremities and awake; not confused Psychiatric: A+Ox3, euthymic affect Results & Data Results & Data ([facility]) Vital Signs (Past 12 Hours) Vital Signs Temp Pulse Pulse Resp BP Pulse Ox 11/15/21 06:41 36.6 C 45 L 18 160/64 H 95 11/15/21 03:06 36.8 C 49 L 18 164/72 H 94 11/14/21 23:20 36.6 C 49 L 18 160/82 H 95 11/14/21 22:17 42 L (1) Syncope Syncope type: unspecified Qualified Code(s): R55 - Syncope and collapse (2) Hypertension Hypertension type: essential hypertension Qualified Code(s): I10 - Essential (primary) hypertension
[2021-11-15] MEDS ORDERED: MIDAZOLAM HCL 5 MG/ML 1 ML VIAL ONE (10:20)
[2021-11-15] MEDS ORDERED: fentaNYL citrate 100 MCG/2 ML VIAL ONE (10:20)
--- NOTE | 2021-11-15 10:21 | Pre Anesthesia Assessment ---
Date of Service November 15, 2021 Pre Sedation Assessment Vital Signs Temp Pulse Pulse Resp BP BP Pulse Ox 11/15/21 06:41 36.6 C 45 L 18 160/64 H 95 11/15/21 03:06 36.8 C 49 L 18 164/72 H 94 11/14/21 23:20 36.6 C 49 L 18 160/82 H 95 11/14/21 22:17 42 L 11/14/21 21:44 36.5 C 44 L 16 161/68 H 93 11/14/21 19:22 36.6 C 106 H 18 145/112 H 95 11/14/21 19:20 109 H 11/14/21 18:23 108 H 18 170/108 H 95 11/14/21 18:15 109 H 18 179/108 H 11/14/21 16:28 42 L 18 195/83 H 94 11/14/21 14:45 39 L 16 186/73 H 95 11/14/21 14:15 95 11/14/21 14:10 42 L 16 184/99 H 95 11/14/21 13:53 36.4 C L 50 L 16 162/108 H 96 Cardiovascular RRR, no murmur, no edema + bradycardic Respiratory normal respiratory effort, lungs clear to auscultation Pre-Sedation Airway Assessment Smoking Status: Never smoker ASA: ASA3 NPO Status Date of Last Intake of Fluids: 11/14/21 Date of Last Intake of Solid Food: 11/14/21 Procedure Planning Contraindications for Sedation: none Current Medications Reviewed: Yes Notes The planned sedation has been discussed with the patient. Informed Consent was obtained. I have identified the patient, determined the appropriateness of sedation and have assessed the patient immediately prior to the procedure. All medicine(s) and interventions are by my order.
--- NOTE | 2021-11-15 10:33 | XCELERA ---
[id number]
[2021-11-15] MEDS ORDERED: BACITRACIN OINT 0.9 GM PKT ONE (11:38)
--- NOTE | 2021-11-15 11:50 | Electrophysiology Report ---
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 Dye was injected the left arm IV site to opacify the left subclavian vein. The subclavian vein was identified and found to be free of obstruction although it was somewhat atypical and tortuous. The left prepectoral region was anesthetized with 1% lidocaine local anesthetic and left axillary venipuncture was performed by percutaneous technique and a guidewire placed through the left subclavian vein into the superior vena cava. The area was further infiltrated with 1% lidocaine local anesthetic and a 5 cm incision was made parallel to the left clavicle and 2 cm below it and carried down to the anterior pectoralis fascia. A pacemaker pocket was formed by blunt dissection anterior to the pectoralis fascia and a vancomycin-soaked sponge was placed in the pocket. An 8 [place] Medtronic lead introducer was placed over the guidewire into the left subclavian vein, the dilator and guidewire were removed and a bipolar active fixation steroid tipped ventricular lead was advanced through the introducer into the superior vena cava. A guidewire was placed through the introducer and the introducer was stripped from the lead and guidewire. Another 8 [place] Medtronic lead introducer was placed over the guidewire into the left subclavian vein, the dilator and guidewire were removed and a bipolar active fixation steroid tipped atrial lead was advanced through the introducer into the superior vena cava. A guidewire was placed back through the introducer and the introducer was stripped from the lead and guidewire. Using a curved stylette the ventricular lead was advanced through the right ventricular outflow tract into the pulmonary artery and then using a straight stylette was positioned in the right ventricular apex. Due to tortuosity in the superior vena cava lead manipulation was somewhat difficult. The screw was extended fixing the lead in position. Pacing and sensing thresholds were evaluated in bipolar configuration and are recorded on the implant data sheet. Diaphragmatic pacing was evaluated at maximum output as noted on the data sheet. Using a curved stylette the atrial lead was positioned in the region of the atrial appendage and the screw extended fixing the lead in position. Pacing and sensing thresholds were evaluated in bipolar configuration and are recorded on the implant data sheet. Diaphragmatic pacing was evaluated at maximum output as noted on the data sheet. Once the leads were in position they were attached to the anterior pectoralis fascia using 2 sutures of 2-0 silk around each lead collar. The vancomycin soaked sponge was removed from the pocket, hemostasis was obtained, the pacemaker was attached to the leads and placed in the pocket with the leads coiled beneath it. The incision was closed with a running double subcutaneous closure of 3-0 Vicryl absorbable suture, followed by running subcuticular skin closure of 4-0 Vicryl absorbable suture. Bacitracin ointment was placed on the incision and a dressing applied. [facility] Electrophysiology codes Indication for Procedure (1) Sinus node dysfunction: Pacing Procedure 1: Pacin Insert/Replace Pacer A & V Miscellaneous Procedures Procedure 1: EP Miscellaneous: 43402 Contrast injection for venography Procedure 2: EP Miscellaneous: 72220-43 Vengraphy, extremity PG Moderate Sedation Codes Moderate Sedation Codes Procedure 1: Sedation/Anesthesia: 23100 Mod Sedation by the same physician;Init15 Min Child Age 5 & Up Procedure 2: Sedation/Anesthesia: 84805 Mod Sedation by the same physician; Ea [id number] Minutes
[2021-11-15] MEDS: LACTATED RINGER'S 1,000 ML IV SCH (13:43)
--- NOTE | 2021-11-15 14:47 | Electrocardiogram Report ---
Test Reason : Blood Pressure : / mmHG Vent. Rate : 102 BPM Atrial Rate : 093 BPM P-R Int : 000 ms QRS Dur : 124 ms QT Int : 398 ms P-R-T Axes : 000 -32 043 degrees QTc Int : 518 ms Poor data quality, interpretation may be adversely affected Atrial fibrillation with rapid ventricular response Left axis deviation Poor R wave progression, consider anterior GA vs. lead placement vs. LVH Abnormal ECG When compared with ECG of 14-NOV-2021 14:09, Atrial fibrillation has replaced Sinus rhythm Vent. rate has increased BY 52 BPM Confirmed by Amari Cm ([id number]) on 11/15/2021 2:47:17 PM Referred By: Austen Muñoz Confirmed By:Cooper Cm
--- NOTE | 2021-11-15 14:47 | Electrocardiogram Report ---
Test Reason : Blood Pressure : / mmHG Vent. Rate : 052 BPM Atrial Rate : 052 BPM P-R Int : 210 ms QRS Dur : 110 ms QT Int : 490 ms P-R-T Axes : 079 006 069 degrees QTc Int : 455 ms Sinus bradycardia with 1st degree A-V block with Premature atrial complexes Otherwise normal ECG When compared with ECG of 14-NOV-2021 18:09, (unconfirmed) Sinus rhythm has replaced Atrial fibrillation Vent. rate has decreased BY 50 BPM Minimal criteria for Anterior infarct are no longer Present ST no longer depressed in Lateral leads QT has shortened Confirmed by Amari Cm ([id number]) on 11/15/2021 2:47:29 PM Referred By: Austen Muñoz Confirmed By:Cooper Cm
--- NOTE | 2021-11-15 15:00 | Electrocardiogram Report ---
Test Reason : Blood Pressure : / mmHG Vent. Rate : 060 BPM Atrial Rate : 060 BPM P-R Int : 304 ms QRS Dur : 112 ms QT Int : 500 ms P-R-T Axes : 000 -26 050 degrees QTc Int : 500 ms Atrial-paced rhythm with prolonged AV conduction Minimal voltage criteria for LVH, may be normal variant Prolonged QT Abnormal ECG When compared with ECG of 14-NOV-2021 20:10, (unconfirmed) Electronic atrial pacemaker has replaced Sinus rhythm QRS axis Shifted left Confirmed by Amari Cm ([id number]) on 11/15/2021 3:00:22 PM Referred By: Austen Muñoz Confirmed By:Cooper Cm
[2021-11-15] MEDS: METOPROLOL TARTRATE 50 MG TAB PO SCH (20:33)
[2021-11-16] MEDS: traMADol HCL 50 MG TABLET PO PRN ×3 (04:40→13:19)
--- NOTE | 2021-11-16 07:51 | Cardiology Progress Note ---
Date of Service November 16, 2021 Assessment & Plan (1) Status post placement of cardiac pacemaker: Plan: She is doing well postop day #1, leads are in good position, measurements are excellent and the site looks good. She is stable for discharge today. I would send her home on her current regimen of metoprolol tartrate 50 mg twice a day and flecainide 150 mg twice a day and we can see in follow-up whether her rate is controlled during atrial fibrillation and whether she has symptomatic episodes of atrial fibrillation. We will schedule office follow-up for a wound check on Saturday. Admission and Anticipated Discharge Date Admission Date: November 14, 2021 Subjective She is feeling very well today, overall she feels much better than she did before pacemaker implantation. She has no significant incisional discomfort, no shortness of breath and no chest discomfort. Physical Exam Physical Exam: The pacer site is clean and dry, no significant bleeding, no ecchymosis and no swelling or erythema. Cardiac rhythm is regular without rub Lungs are clear Results & Data ([facility]) Vital Signs (Past 12 Hours) Vital Signs Temp Pulse Pulse Resp BP BP Pulse Ox 11/16/21 04:33 36.6 C 60 18 122/76 91 11/15/21 23:28 60 11/15/21 22:59 36.6 C 60 16 135/83 94 Laboratory Results CBC 11/15/21 Range/Units 08:03 WBC 5.56 (4.8-10.8) K/uL RBC 4.48 (4.2-5.4) M/uL Hgb 13.9 (12.0-16.0) g/dL Hct 40.5 (37-47) % Plt Count 115 L (130-400) K/uL Comprehensive Metabolic Panel 11/15/21 Range/Units 08:03 Sodium 138 (136-145) mmol/L Potassium 4.1 (3.5-5.1) mmol/L Chloride 105 (98-107) mmol/L Carbon Dioxide 26 (21-32) mmol/L BUN 14 (6-23) mg/dl Creatinine 0.78 (0.6-1.2) mg/dl Glucose 86 (70-99(Fasting)) mg/dl Calcium 8.9 (8.5-10.1) mg/dl Intake and Output 11/15/21 11/16/21 11/16/21 22:59 06:59 14:59 Intake Total 200 / 629 100 / 629 Balance 200 / 628 100 / 628 Intake: Oral 200 / 575 100 / 575 Other: # Unmeasured Voids 1 1 Weight 110.2 kg Weight Measurement Method Built in [facility] Diagnostic Findings Postop ECG: Atrial pacing with intact AV conduction Telemetry: Atrial pacing, intact AV conduction. Appropriate pacer function. Chest x-ray: Good lead position, no pneumothorax Pacer evaluation: Excellent pacing and sensing characteristics PG Care Time/CCT Total # of Minutes Spent Total Time Spent with Patient: Total time spent is greater than 50% in coordination of care (as documented) at patient's floor/unit and/or counseling patient: Coding Level of Care Code 86220 Post Operative Follow-Up Diagnoses Status post placement of cardiac pacemaker Z95.0 CPT Codes Dual Lead Pacemaker System - [id number] ([id number])
[2021-11-16 08:07] LABS: Basophils # (auto) 0.02 K/uL (0-0.2); Basophils % (auto) 0.4 %; Eosinophils # (auto) 0.23 K/uL (0-0.5); Hematocrit (blood only) 40.1 % (37-47); Hemoglobin 13.4 g/dL (12.0-16.0); Immature Granulocytes # (auto) 0.01 K/uL (0.00-0.02); Immature Granulocytes % (auto) 0.2 %; Lymphocytes # (auto) 1.46 K/uL (1.2-3.4); Lymphocytes % (auto) 25.6 %; Mean Corpuscular Hemoglobin 29.7 pg (25-34); Mean Corpuscular Hgb Conc 33.4 g/dL (32-36); Mean Corpuscular Volume 88.9 fL (80-100); Mean Platelet Volume 12.4 fL (7.4-10.4); Monocytes # (auto) 0.66 K/uL (0.11-0.59); Monocytes % (auto) 11.6 %; Neutrophils # (auto) 3.33 K/uL (1.4-6.5); Neutrophils % (auto) 58.2 %; Platelet Count 118 K/uL (130-400); RDW Standard Deviation 45.8 fL (36.4-46.3); Red Blood Count 4.51 M/uL (4.2-5.4); White Blood Count 5.71 K/uL (4.8-10.8)
[2021-11-16] MEDS: APIXABAN 5 MG TABLET PO SCH (09:17)
[2021-11-16] MEDS: METOPROLOL TARTRATE 50 MG TAB PO SCH (09:17)
[2021-11-16] MEDS: FLECAINIDE ACETATE 100 MG TABLET PO SCH (09:17)
[2021-11-16] MEDS: ESCITALOPRAM OXALATE 20 MG TAB PO SCH (09:18)
[2021-11-16] MEDS: VITAMIN B COMPLEX TAB PO SCH (09:18)
[2021-11-16] MEDS: CHOLECALCIFEROL 5,000 UNITS 125 MCG TAB PO SCH (09:18)
[2021-11-16] MEDS: ATORVASTATIN 40 MG TAB PO SCH (09:18)
[2021-11-16] MEDS: MAGNESIUM OXIDE 400 MG TAB PO SCH (09:18)
--- NOTE | 2021-11-16 09:25 | XRay Report ---
XR chest 2V PA/lateral HISTORY: 71 years-old Female EXACT TIME ORDERED Evaluate for pneumothorax and l status post placemen t of a left subclavian pacer COMPARISON: Chest radiograph 11/14/2021 TECHNIQUE: PA and lateral views of the chest FINDINGS: Left subclavian pacer. Cardiomegaly. Atherosclerosis of the thoracic aorta. No pneumothorax, pleural effusion, airspace consolidation or overt pulmonary edema. Sigmoidal thoracolumbar scoliosis. Degener ative changes of the shoulders and spine. IMPRESSION: Status post placement of a left subclavian dual lead pacer. No postprocedural pneumothora x. ACT 112: Negative or not required by law. The above report was generated using voice recognition software. It may contain grammatical, syntax o r spelling errors. Electronically signed by: Aguilar Nunn M.D. 11/16/2021 9:23 AM
[2021-11-16] MEDS: LACTATED RINGER'S 1,000 ML IV SCH (11:36)
--- NOTE | 2021-11-16 15:12 | Discharge Summary ---
Date of Service November 16, 2021 Admission HPI Per Admitting Provider Rebeka Dumont is a 71 year old who presents to the ER after a syncopal event. She reports feeling dizzy for approximately 30 seconds before losing consciousness. She does not remember falling but does remember hitting her head. She thinks she only lost consciousness for a few seconds per witnesses. Her fall was from standing in [employer] store. She reports a significant history or presyncope but usually gets tunnel vision prior to episodes which did not happen today. She reports previous improvement after losartan was discontinued. She has known paroxysmal atrial fibrillation for which she takes flecainide and metoprolol. She reports always feeling when she goes into this as she doesn't feel well. She was last in atrial fibrillation when she had COVID on May. Converted to NSR after a month. Previously she has required cardioversion to convert on two occasions. In the ER she was noted to have a sinus bradycardia with PVCs on EKG. She was referred to medicine for admission and ongoing management of syncope. Admission Exam (Per Admitting) Constitutional WD/WN, vitals as above Eyes + anicteric sclerae; normal pupil size ENMT external ear and nose normal, oropharynx normal Respiratory normal respiratory effort, lungs clear to auscultation Cardiovascular Rate/Rhythm: regular rhythm and + bradycardic Heart Sounds: no murmur Extremities: normal capillary refill; no calf tenderness and no pedal edema Gastrointestinal (Abdomen) normal bowel sounds, soft, nontender, no hepatosplenomegaly Musculoskeletal no cyanosis or clubbing, extremities motor strength 5/5 Skin no rashes, warm and dry Neurologic moves all extremities and awake; not confused Psychiatric A+Ox3, euthymic affect Specialty Data Cardiology CBC 11/16/21 Range/Units 06:49 WBC 5.71 (4.8-10.8) K/uL RBC 4.51 (4.2-5.4) M/uL Hgb 13.4 (12.0-16.0) g/dL Hct 40.1 (37-47) % Plt Count 118 L (130-400) K/uL Neut # (Auto) 3.33 (1.4-6.5) K/uL Lymph # (Auto) 1.46 (1.2-3.4) K/uL [place] # (Auto) 0.66 H (0.11-0.59) K/uL Eos # (Auto) 0.23 (0-0.5) K/uL Baso # (Auto) 0.02 (0-0.2) K/uL Intake and Output 11/16/21 11/16/21 11/16/21 06:59 14:59 22:59 Intake Total 100 / 629 Balance 100 / 628 Intake: Oral 100 / 575 Other: # Unmeasured Voids 1 Weight 110.2 kg 110.2 kg Weight Measurement Method Built in [facility] Patient Weight 11/17/21 06:59 Weight 110.2 kg Discharge Data Consultations 11/14/21 16:13 ED Decision to Admit Stat 11/14/21 19:31 Consult Cardiology Routine Procedures Performed Operation Date: 11/15/21 10:30 Actual Procedures p Pacer with A/V Leads (Dual) - Hero Wynn MD s Venogram, Unilateral - Hero Wynn MD Hospital Course (1) Syncope: 71 yo F with a PMH of Afib with RVR s/p cardioversion x2 on Metoprolol and Flecainide presented with syncopal event and symptomatic bradycardia; 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 Syncope - Etiology was most likely cardiogenic given history of dysrhythmias - Lack of underlying epilepsy, no witnessed convulsions, neurogenic syncope less likely - Lack of defecation, change in position, vasovagal syncope less likely - No preceding emotional event trigger, less likely reflex syncope - Blood pressure was elevated on arrival, orthostatic syncope is unlikely - On arrival, patient in sinus maxx at 39 bpm, however with underlying history of paroxysmal atrial fibrillation. Converted intermittently between the two. Consistent with tachy-maxx syndrome - Cardiology consult was placed and recommended pacemaker placement for treatment of symptomatic bradycardia and tachy-maxx syndrome - Pacemaker placed on hospital day 2. Following procedure, complete resolution of presyncopal/syncopal episodes as previously described by patient. Was able to ambulate without lightheadedness, dizziness. - S/p pacemaker EKG showed atrially paced rhythm at 60 (2) Paroxysmal atrial fibrillation: - History of paroxysmal atrial fibrillation with RVR with home regimen of Metoprolol, Flecainide, and Eliquis for anti-coagulation - Electrolytes normal on admission; TSH normal - Concurrent sinus bradycardia suspicious for tachy-maxx syndrome indicative of SA node dysfunction - Cardiology recommended pacemaker placement; procedure undergone hospital day 2 - Per cardiology, resume home Metoprolol 50 mg BID and Flecainide 150 mg BID - Per discussion with cardiology, will continue anticoagulation with Eliquis 5mg PO BID (3) Hypertension: - Patient ran in 130s systolic and 80-90 diastolic throughout admission - Resume home Metoprolol on discharge (4) Contusion of left temporofrontal scalp: - secondary to fall prior to admission - Noted on admission Head CT - Per pt, headache from contusion resolved by hospital day 2 - Recommend repeat head CT within 7 days of discharge due to risk of subdural hematoma, as patient is on Eliquis (5) Anxiety with depression: - Home escitalopram 20 mg was continued throughout hospital course - Post-pacemaker placement EKG showed a prolonged QTc interval of 500 - In discussion with cardiology and pt, on discharge, reduce escitalopram 10 mg Supervising Physician Co-Signing Physician Notes I also saw the patient with the resident physician and medical student and I confirmed johnson portions of the history and physical examination. I agree with the impression and plan as noted in the resident documentation. She has no complaints today. She overall is feeling much better. She has been ambulating around the unit without chest pain or shortness of breath. On telem etry she remained in a paced rhythm at 60 bpm. Exam 137/81, 62, 16, 36.9, 95% on room air Pleasant alert oriented. No distress appreciated. Heart regular Lungs clear with nonlabored respirations. Data CBC within normal limits today Bradycardia with syncope, now status post pacemaker placement Atrial fibrillation Cardiology consultation appreciated Discharge today on metoprolol 50 mg twice daily and flecainide 100 mg twice a day Follow-up with cardiology as planned scheduled Prolonged QT Depression She has been on E citalopram for about 2 decades. She is really doing quite well in terms of depression and we discussed her prolonged QT and the possibility that this is in part related to her SSRI. She feels well enough that she would like to decrease her SSRI dose (even independent of the QT interval), and this seems reasonable Decrease Lexapro to 10 mg daily I discussed with cardiology and they will see if her QT interval improves with this lower dose Additional as noted above I spent 30 minutes seeing the patient, discussed with cardiology, dictating and preparing discharge materials.
== END 2021-11-16 13:49 | disposition home or self-care (01) ==
LOC: 2E 13:52 → ED 13:52 → SUATTDRO 16:19 → 2E 18:23